=== PATIENT | female | born 1995 | race Caucasian/White ===

== ENCOUNTER 2021-08-10 16:49 | Outpatient (CLI) | payer OTHER, SELFPAY ==
[2021-08-10 18:21] LABS: SARS-CoV-2 RNA PCR Negative (Negative)
== END 2021-08-10 16:50 | disposition home or self-care (01) ==
LOC: CHSLAB 16:53
PROVIDERS: PCP Physician Assistant; Visit Provider Physician Assistant
DX: Z20.822 Contact with and (suspected) exposure to COVID-19 (principal)
CPT/HCPCS: C9803; U0003; U0005

== ENCOUNTER 2021-10-20 01:31 | Day surgery (SDC) | payer OTHER, SELFPAY ==
[2021-10-19 14:20] VITALS: BMI 39.9
--- NOTE | 2021-10-19 14:25 | PC.NURSE ---
Report to the Outpatient Waiting Room, entrance under the green pavilion located off [facility], at time _1100 on date __10/20/21 . OR Time: ____1330____. - You and your visitor will be asked a series of questions to screen for COVID 19 for your protection. - Only one visitor is allowed at this time. - The patient visitor is requested to leave or wait in car when not with patient. RAPID COVID 10/20/21 AT 1100 - A mask is required within the hospital. Patients may have clear liquids (water, carbonated beverages, clear teas, apple juice) until 3 hours prior to surgery with a maximum of 20 ounces. - No food from midnight until time of surgery - Infants may have breast milk until 4 hours before surgery, formula 6 hours prior to surgery. - Children will be allowed to drink immediately following surgery. If applicable, please bring a bottle or sippy cup to assist with drinking. Juice, water, soda, and popsicles are readily available. For infants on formula, please bring formula the day of surgery. Pacifiers are allowed. Take the following medications with a SIP of water the morning of surgery: ___NONE Medications to discontinue per physician _NONE Date to take last dose Please no make-up, nail libyan, hairspray, perfume, deodorant, or body powder the day of surgery. No jewelry (including any body piercings) or valuables the day of surgery, leave them at home. Please take a shower or bath the night before, or the morning of, surgery with an antibacterial soap. Wear comfortable, loose fitting clothing. Children are encouraged to wear pajamas. - Jewelry must be removed prior to entering the operating room. Rings and piercings that are not removed may be cut off. - The hospital will not accept responsibility for valuables. - Please leave all valuables, including medications, at home the day of surgery. If you are going home after surgery, a licensed escort car driver must drive you home. - NO public transportation without another adult. - We recommend that an adult stay with you for 24 hours following discharge. - We also recommend that you do not drive, make important decision, drink alcoholic beverages, or take any drugs that were not prescribed by your health care provider for at least 24 hours after your discharge time. For Pediatric surgeries, we recommend two adults accompany the child home (only one inside the building at this time). Follow any additional instructions given to you from your surgeon. If you or anyone in your household have experienced Covid symptoms in the past week, please notify your surgeon or the nurse liaison at the phone number below for possible testing. Telephone instructions given to ____PATIENT and asked if any additional questions and then verbalized understanding. Patient advised to call surgeon office or pre surgery nurse liaison [phone] if any additional questions.
[2021-10-20] VITALS (10 sets, daily range): BP systolic 112–145; BP diastolic 61–90; PULSE 51–81; RESP 11–20; TEMP 36.1–36.3; O2SAT 93–100
--- NOTE | 2021-10-20 07:23 | WPDHPUPDATE1 ---
History and Physical Update Update Date/Time: 10/20/21 07:23 History and Physical has been reviewed, including an updated exam of the patient. There are NO changes in the patient's condition. Risks, benefits, and alternatives have been discussed and questions answered. Patient agrees to proceed with procedure.
--- NOTE | 2021-10-20 07:24 | PM.IMHP ---
H&P: HPI History of Present Illness Date/Time: 10/20/21 07:24 [age] year 1 para admitted for laparoscopy secondary to pelvic pain 7 pains both sides more on the right and right left. Risks and benefits reviewed. All questions answered. She asked to proceed Chief Complaint: pelvic pain Review of Systems Review of Systems: All systems reviewed & are unremarkable except as noted in HPI and below PMFSH Social History Social History Smoking status: Never smoker Alcohol intake: current Drinks per week: 3 Living arrangements: with family Spiritual care concerns: No Meds Home Medications and Allergies Home Medications Medication Instructions Recorded Confirmed Type 1 tablet PO DAILY 10/19/21 10/19/21 History Allergies Allergy/AdvReac Type Severity Reaction Status Date / Time No Known Allergies Allergy Unverified 10/19/21 14:19 Exam Const: General: no acute distress Eyes: General: appearance normal, both eyes and all related structures Neck: Neck: supple and no JVD Thyroid: thyroid normal Resp: Effort & Inspection: normal respiratory effort Auscultation: clear to auscultation bilaterally Cardio: Rate: regular rate Rhythm: regular rhythm GI: Inspection: non-distended GI Palp: Yes Soft to palpation, No Tenderness to palpation present (GI) and No Guarding due to palpation present (GI) Auscultation: normal bowel sounds : External Female Exam: normal external appearance Speculum Exam - Vagina: normal appearance of the vagina Speculum Exam - Cervix: normal appearance of the cervix Bimanual Exam- Adnexa, other: tender Skin: General skin exam: no rashes or lesions noted Extrem: General: normal to inspection and no edema Psych: Mental Status: mental status grossly normal Affect: normal affect Assessment and Plan Additional Plan impression: Pelvic pain Plan: Laparoscopy
[2021-10-20] MEDS: ACETAMINOPHEN 500 MG TABLET 1000 MG PO (12:13)
[2021-10-20] MEDS: LACTATED RINGERS 1,000 ML 30 ML IV CONT ×2 (12:20→15:19)
[2021-10-20] MEDS: KETOROLAC 15 MG/ML VIAL (*BKC) IV PUSH (12:22)
--- NOTE | 2021-10-20 12:37 | WPDANESEPPF ---
Anes - Initial Pre Proc Eval Procedure: Operation Date: 10/20/21 13:30 Proposed Procedures p Diagnostic Laparoscopy - Jam Dominguez MD Date/Time: 10/20/21 12:37 Surgeon: Jam Dominguez MD Pre Op Diagnosis: Pain Patient Data Age: 26 Gender: F Height: 1.75 m Weight: 120.5 kg Last Vital Signs Temp 36.3 C L 10/20/21 11:58 Pulse 79 10/20/21 11:58 Resp 20 10/20/21 11:58 BP 123/84 10/20/21 11:58 Pulse Ox 100 10/20/21 11:58 Allergies Allergy/AdvReac Type Severity Reaction Status Date / Time No Known Allergies Allergy Unverified 10/20/21 12:10 Home Medications Medication Instructions Recorded Confirmed Type 1 tablet PO DAILY 10/19/21 10/20/21 History hydrocodone-acetaminophen 1 tablet PO Q4H PRN #30 tablet 10/20/21 Rx Patient hx anesthesia problems: none Family hx anesthesia problems: none Results Review: All pre-operative results and documents have been reviewed as part of the pre-operative evaluation. [facility] Social History Social History Smoking status: Never smoker Alcohol intake: current Drinks per week: 3 Spiritual care concerns: No Anes - Eval Final PreProcedure Day of Procedure 10/20/21 12:37 Patient weight: obese Heart: regular rate and rhythm Lungs: clear to auscultation and normal air movement Airway: Mallampati scale class II Neurological: alert and oriented Last oral intake: >/= 8 hours ASA classification: II Emergent: no Anesthetic plan: proceed Anesthesia type and monitoring: general ETT and standard monitoring Results Review: All pre-operative results and documents have been reviewed as part of the pre-operative evaluation. Informed Consent: The patient's anesthetic plan and its attendant risks and benefits were discussed with the patient/family/POA. Questions were solicited and answers provided to the satisfaction of the patient/family/POA.
--- NOTE | 2021-10-20 15:09 | W.PM.PROC2 ---
Procedure Note - Detailed Date of Procedure 10/20/21 Pre-op Diagnosis Pain Post-op Diagnosis Other (Right ovarian cyst. Lesion in the cul-de-sac) Procedure Performed Laparoscopy. Destruction right ovarian cyst. Biopsy of cul-de-sac lesion Surgeon Jam Dominguez MD Anesthesia General Indications This is a 26-year-old female with severe pelvic pain Findings Normal-appearing appendix liver edge. Normal-appearing left ovary and tube. Normal-appearing uterus. A reactive portion of tissue was seen in the left portion of the cul-de-sac which was biopsied and sent. A right ovarian cyst which was hemorrhagic in nature was seen as well. Description of Procedure Patient was prepped and draped in the normal sterile fashion placed in the dorsal lithotomy position. Under excellent general trach anesthesia weighted speculum placed in posterior fornix vagina. Anterior lip of the cervix grasped with single-tooth tenaculum. The Bruce's cannula inserted the cervix and attached to the single-tooth to be used later for uterine manipulation. After emptying the bladder clear urine the weighted speculum was removed and gloves were changed. A supraumbilical incision made the Veress needle passed in the abdomen. Abdomen filled with CO2 gas to 15mm Hg 5mm trocar advanced under direct visualization assuring injury. The patient placed in Trendelenburg a left lower quadrant incision made and a 5mm trocar advanced under direct visualization assuring injury. [id number] of serosanguineous fluid was seen in the cul-de-sac and this was suction and. The left ovary and tube appeared within normal limits on the left uterosacral ligament was a finger-like projection which was clamped and removed without difficulty. A right ovarian cyst was seen and this was opened in linear fashion draining of serosanguineous fluid. This was irrigated and no other abnormalities were seen the appendix and liver edge appeared within normal limits. No other abnormalities seen irrigation was taken until clear. At this point the lower site removed. The upper site removed the incisions closed with 4-0 robotic Krill glue. The instruments removed from the vagina and the patient was awakened. All sponge, needle, instrument counts were correct. There were no immediate complications Estimated Blood Loss 5 Drains No Packing No Pathology Yes Complications No immediate complications Condition Stable Disposition PACU
[2021-10-20] MEDS: fentaNYL CITRATE INJ (*CRX) 100 MCG/2 ML VIAL 25 MCG IV PUSH ×5 (15:36→16:21)
[2021-10-20] MEDS: oxyCODONE HCL (*CRX) 5 MG TAB IR PO (17:14)
[2021-10-20] MEDS: ONDANSETRON INJ 4 MG/2 ML VIAL IV PUSH (17:47)
[2021-10-20] MEDS: SCOPOLAMINE 1.5 MG PATCH TRANSDERM (17:47)
== END 2021-10-20 18:05 | disposition home or self-care (01) ==
PROVIDERS: PCP Physician Assistant; Visit Provider Obstetrics & Gynecology
PROC: (CPT 49320; principal; 2021-10-20 13:30)
DX: R10.2 Pelvic and perineal pain (principal); N83.201 Unspecified ovarian cyst, right side; N73.6 Female pelvic peritoneal adhesions (postinfective); E66.9 Obesity, unspecified; Z68.39 Body mass index [BMI] 39.0-39.9, adult
CPT/HCPCS: 58662; 49321; 36415; 86850; 86900; 86901; 87426; 88305; A9270; C9803; J0330; J1100; J1885; J2250; J2405; J2704; J3010; J7030; J7120

== ENCOUNTER 2021-10-20 10:56 | Outpatient (CLI) | payer OTHER, SELFPAY ==
[2021-10-20 11:32] LABS: EDCOVIDSCREEN Negative (Negative)
== END 2021-10-20 10:57 | disposition home or self-care (01) ==
LOC: ANHSURGERY 10:58
PROVIDERS: PCP Physician Assistant; Visit Provider Obstetrics & Gynecology
DX: Z01.812 Encounter for preprocedural laboratory examination (principal); Z20.822 Contact with and (suspected) exposure to COVID-19
CPT/HCPCS: 87426; C9803

== ENCOUNTER 2022-08-30 17:54 | Observation (INO) | payer OTHER, SELFPAY ==
[2022-08-30 18:15] VITALS: BMI 39.5
[2022-08-30 18:25] VITALS: BP 102/63; PULSE 81; RESP 18; TEMP 36.6
[2022-08-30 18:49] LABS: Appearance Urine Slightly Cloudy (Clear); Bilirubin Urine 1+ (Negative); Blood Urine Negative (Negative); Color Urine Yellow (Yellow); Glucose Urine UA Negative (Negative); Ketones Urine 1+ mg/dL (Negative); Leukocyte Esterase Ur Negative LEU/UL (Negative); Nitrate Urine Negative (Negative); Protein Urine Trace mg/dL (Negative); Specific Grav Ur >= 1.030 (1.001-1.035); pH Urine 5.5 (5.0-9.0)
[2022-08-30 19:00] LABS: Add Urine Microscopic? YES; RBC Urine 0-2 /hpf (0-2); Squamous Epithelial Cell Urine Moderate /hpf (Few); WBC Urine 0-5 /hpf (0-3)
--- NOTE | 2022-08-30 19:00 | OBADM ---
This patient, Haley Arce, admitted to the OB room OB Post 115 for observation. Patient/family oriented to hospital policies and general routines including ID bracelet, bed and alarms, visiting hours, pain management, procedures, bathroom and other care routines, personal items, smoking policy, room service/diet, and visiting hours. Patient/Family are encouraged to report perceived risks to care and to ask questions if they do not understand what they are told or what they should do.
[2022-08-30 19:01] LABS: Bacteria Urine Trace /hpf
--- NOTE | 2022-08-30 19:23 | PC.NURSE ---
Dr. Blanquita Dominguez notified of PT 19.2 weeks arrival to unit from ED with c/o abdominal cramping. PT states cramping started continuously yesterday and subsided overnight, started again this morning and has been intermittent all day. PT rates pain a 6 on a pain scale of 1-10. PT has not taken any medication recently for pain, denies leaking of fluid or bleeding. RN reported labs, vitals WNL, no uterine activity, abdomen soft to palpation, FHT via Doppler, 158bpm. Orders to educate PT on pain management, give PT 1g Tylenol, orders for discharge received.
--- NOTE | 2022-08-30 19:35 | PC.NURSE ---
Tamara Davison RN at bedside, Explained orders per Dr. Juares to PT. PT denies Tylenol at this time, PT states she will take medication when she goes home.
--- NOTE | 2022-08-30 19:52 | PC.NURSE ---
Tamara Davison RN at bedside discharge instructions given and reviewed with PT. PT verbalized understanding, PT given opportunity to ask questions with all questions answered. PT stable at this time. PT discharged from unit.
--- NOTE | 2022-08-31 11:06 | PM.OBTRLD ---
OB - Triage/Final Diagnosis Visit Information Date of evaluation: 08/30/22 Reason for evaluation: threatened labor Comments/Additional reasons for admission: I have assessed the risk for this patient, Haley Arce, and determined that she would benefit from observation care. Evaluation Laboratory results: Laboratory Tests 08/30/22 18:39 Urine Color Yellow Urine Appearance Slightly cloudy Urine pH 5.5 Ur Specific [place] >= 1.030 Urine Protein Trace Urine Glucose (UA) Negative Urine Ketones 1+ H Ur Blood (Man) Negative Urine Nitrate Negative Urine Bilirubin 1+ H Urine Urobilinogen 1.0 Leukocyte Esterase Rfl Negative Urine RBC 0-2 Urine WBC 0-5 Ur Squamous Epith Cells Moderate H Urine Bacteria Trace Vital signs: Vital Signs - 24 hr 08/30/22 18:25 08/30/22 18:15 Temperature 97.9 F Pulse Rate 81 Respiratory Rate 18 Blood Pressure 102/63 Oxygen Delivery Room Air
== END 2022-08-30 19:52 | disposition home or self-care (01) ==
PROVIDERS: Admitting Provider Obstetrics & Gynecology; PCP Physician Assistant; Visit Provider Obstetrics & Gynecology
DX: O47.02 False labor before 37 completed weeks of gestation, second trimester (principal); Z3A.19 19 weeks gestation of pregnancy
CPT/HCPCS: 81001; G0378; G0379

== ENCOUNTER 2022-11-01 14:40 | Observation (INO) | payer OTHER, SELFPAY ==
[2022-11-01 15:12] VITALS: BP 98/51; PULSE 85
[2022-11-01 15:15] VITALS: BP 102/54; PULSE 81
[2022-11-01 15:30] VITALS: BP 102/56; PULSE 84
[2022-11-01 15:47] LABS: Appearance Urine Cloudy (Clear); Bacteria Urine None Seen /hpf; Bilirubin Urine Negative (Negative); Blood Urine Negative (Negative); Color Urine Dark Yellow (Yellow); Glucose Urine UA Negative (Negative); Ketones Urine Trace mg/dL (Negative); Leukocyte Esterase Ur Negative LEU/UL (Negative); Mucus Urine Present /lpf; Need Manual Microscopic Reviewed; Nitrate Urine Negative (Negative); Non Pathogenic Casts 0-2; Protein Urine Trace mg/dL (Negative); RBC Urine 0-2 /hpf (0-2); Squamous Epithelial Cell Urine Few /hpf (Few)
[2022-11-01 16:01] LABS: Add Urine Microscopic? YES
[2022-11-01 16:05] VITALS: BMI 30.9
--- NOTE | 2022-11-02 13:13 | PM.OBTRLD ---
OB - Triage/Final Diagnosis Visit Information Reason for evaluation: threatened labor Comments/Additional reasons for admission: I have assessed the risk for this patient, Haley Arce, and determined that she would benefit from observation care. Evaluation Laboratory results: Laboratory Tests 11/01/22 15:05 Urine Color Dark yellow Urine Appearance Cloudy H Urine pH 6.0 Ur Specific [place] 1.040 H Urine Protein Trace Urine Glucose (UA) Negative Urine Ketones Trace H Ur Blood (Man) Negative Urine Nitrate Negative Urine Bilirubin Negative Urine Urobilinogen 1.0 Add Ur Microanalysis Reviewed Leukocyte Esterase Rfl Negative Urine RBC 0-2 Urine WBC 6-10 H Ur Squamous Epith Cells Few Urine Bacteria None seen Urine Casts 0-2 Urine Mucus Present Vital signs: Vital Signs - 24 hr 11/01/22 15:12 11/01/22 15:15 11/01/22 15:30 Pulse Rate 85 81 84 Blood Pressure 98/51 L 102/54 L 102/56 L
== END 2022-11-01 16:31 | disposition home or self-care (01) ==
PROVIDERS: Admitting Provider Obstetrics & Gynecology; PCP Physician Assistant; Visit Provider Obstetrics & Gynecology
DX: O47.1 False labor at or after 37 completed weeks of gestation (principal); O26.892 Other specified pregnancy related conditions, second trimester; R10.9 Unspecified abdominal pain; Z3A.28 28 weeks gestation of pregnancy
CPT/HCPCS: 81001; 87086; 87088; 87147; G0378; G0379

== ENCOUNTER 2023-01-02 16:48 | Observation (INO) | payer OTHER, SELFPAY ==
[2023-01-02 17:45] VITALS: BP 110/79; PULSE 84
--- NOTE | 2023-01-02 17:51 | PC.NURSE ---
Dr Flannery notified of back pain, no contractions noted, no CVA tenderness noted, SVE and reassuring fht's.
--- NOTE | 2023-01-02 18:01 | OBADM ---
This patient, Haley Arce, admitted to the OB room Labor/Delivery/Recovery 105 for observation. Patient/family oriented to hospital policies and general routines including ID bracelet, bed and alarms, visiting hours, pain management, procedures, bathroom and other care routines, personal items, smoking policy, room service/diet, and visiting hours. Patient/Family are encouraged to report perceived risks to care and to ask questions if they do not understand what they are told or what they should do.
[2023-01-02] MEDS: CYCLOBENZAPRINE HCL 10 MG TABLET PO (18:28)
--- NOTE | 2023-01-03 21:46 | PM.OBTRLD ---
OB - Triage/Final Diagnosis Visit Information Reason for evaluation: threatened labor Comments/Additional reasons for admission: I have assessed the risk for this patient, Haley Arce, and determined that she would benefit from observation care.
== END 2023-01-02 18:29 | disposition home or self-care (01) ==
PROVIDERS: Admitting Provider Obstetrics & Gynecology; PCP Physician Assistant; Visit Provider Obstetrics & Gynecology
DX: O47.1 False labor at or after 37 completed weeks of gestation (principal); Z3A.37 37 weeks gestation of pregnancy
CPT/HCPCS: A9270; G0378; G0379

== ENCOUNTER 2023-01-15 06:30 | Inpatient (IN) | payer OTHER, SELFPAY ==
[2023-01-15] VITALS (151 sets, daily range): BP systolic 38–153; BP diastolic 18–103; PULSE 51–138; RESP 18; TEMP 35.8–36.6; O2SAT 82–100; BMI 38.4
--- NOTE | 2023-01-15 06:30 | LDADM ---
This patient, Haley Arce, was admitted to Labor/Delivery/Recovery 103 on 01/15/23 at 06:30. Plans for labor, pain management and were discussed with patient. Patient/family oriented to hospital policies and general routines including ID bracelet, bed and alarms, visiting hours, pain management, procedures, bathroom and other care routines, personal items, smoking policy, room service/diet and guest tray routines, security routines, and visiting hours. Patient/Family are encouraged to report perceived risks to care and to ask questions if they do not understand what they are told or what they should do. See OBIX for further documentation.
--- NOTE | 2023-01-15 06:43 | P.HP_ITS ---
H&P: HPI History of Present Illness Date/Time: 01/15/23 06:43 Chief Complaint: Induction of labor at term Narrative: this is a 27-year-old 2 para 1 whose last menstrual period is unknown, EDC is 01/22/2023, confirmed by 9 week ultrasound who presents for induction of labor. Cervix is favorable. She is positive for group B strep and will be prophylaxed. [facility] Family History Family History Father ALS (amyotrophic lateral sclerosis) Hypertension Grandparent Malignant neoplasm of prostate Grandparent Leukemia Social History Social History Smoking status: Never smoker Alcohol intake: current Drinks per week: 3 Substance use: never Living arrangements: with family Spiritual care concerns: No Meds Home Medications and Allergies Home Medications Medication Instructions Recorded Confirmed Type 1 tablet PO DAILY 10/19/21 12/31/22 History Allergies Allergy/AdvReac Type Severity Reaction Status Date / Time No Known Allergies Allergy Verified 12/31/22 12:19 Exam Const: General: cooperative, healthy appearing and comfortable Nutritional Appearance: average body habitus Orientation/consciousness: oriented to person, oriented to place and oriented to time Resp: Effort & Inspection: normal respiratory effort Cardio: Rate: regular rate Rhythm: regular rhythm Heart sounds: S1 normal heart sound present and S2 normal heart sound present GI: Inspection: normal to inspection ( Gravid soft uterus) Assessment and Plan Assessment and plan (1) Term : Code(s): Z34.90 - Encounter for supervision of normal , unspecified, unspecified trimester Status: Acute (2) Positive testing for group B Streptococcus: Code(s): B95.1 - Streptococcus, group B, as the cause of diseases classified elsewhere Status: Acute Plan medical induction of labor. Spontaneous vaginal delivery is expected. Group B strep prophylaxis will be undertaken. She is an epidural candidate
[2023-01-15] MEDS: LACTATED RINGERS 1,000 ML 125 ML IV CONT ×3 (07:18→16:06)
[2023-01-15] MEDS: AMPICILLIN 2 GM/NS 100 ML 2 GM/100 ML BAG IVPB (07:19)
[2023-01-15 07:20] LABS: Basophils Percent Auto 0.2 % (0.2-1.2); Eosinophils Absolute Auto 0.1 K/mm3 (0-0.3); Eosinophils Percent Auto 0.6 % (0-4.4); Hematocrit 36.4 % (37.0-47.0); Hemoglobin 12.3 g/dL (12.0-15.0); Immature Granulocyte Absolute 0.04 K/mm3 (0.00-0.031); Immature Granulocyte Percent A 0.5 % (0-0.5); Lymphocytes Absolute Auto 1.79 K/mm3 (0.9-3.2); Lymphocytes Percent Auto 20.8 % (18.3-44.2); Mean Corpuscular HGB Conc 33.8 g/dl (32-36); Mean Corpuscular Volume 85.8 fl (80-100); Mean Platelet Volume 11.4 fl (7.4-10.4); Monocytes Absolute Auto 0.5 K/mm3 (0.1-0.6); Monocytes Percent Auto 5.2 % (2.6-8.5); Neutrophils Absolute Auto 6.3 K/mm3 (1.3-6.7); Neutrophils Percent Auto 72.7 % (45.5-73.1); Platelet Count Result 197 k/mm3 (150-375); Red Blood Count 4.24 M/mm3 (4.2-5.4); Red Cell Distribution Width 14.6 % (11.5-14.5); White Blood Count 8.6 K/mm3 (4.5-10.0)
--- NOTE | 2023-01-15 07:31 | WPDANESEPP ---
Anes - Eval Pre Procedure Procedure: labor epidural Date/Time: 01/15/23 07:31 Preop Diagnosis: labor pain Pre Op Diagnosis: IOL Patient Data Age: 27 Gender: F Height: 1.75 m Weight: 118 kg Last Vital Signs Pulse 77 01/15/23 07:30 BP 125/82 01/15/23 07:30 Allergies Allergy/AdvReac Type Severity Reaction Status Date / Time No Known Allergies Allergy Verified 12/31/22 12:19 Home Medications Medication Instructions Recorded Confirmed Type 1 tablet PO DAILY 10/19/21 12/31/22 History Laboratory Tests 01/15/23 06:51 WBC 8.6 K/mm3 (4.5-10.0) RBC 4.24 M/mm3 (4.2-5.4) Hgb 12.3 g/dL (12.0-15.0) Hct 36.4 L % (37.0-47.0) MCV 85.8 fl (80-100) MCH 29.0 pg (26-34) MCHC 33.8 g/dl (32-36) RDW 14.6 H % (11.5-14.5) Plt Count 197 k/mm3 (150-375) MPV 11.4 H fl (7.4-10.4) Immature Gran % (Auto) 0.5 % (0-0.5) Neut % (Auto) 72.7 % (45.5-73.1) Lymph % (Auto) 20.8 % (18.3-44.2) [place] % (Auto) 5.2 % (2.6-8.5) Eos % (Auto) 0.6 % (0-4.4) Baso % (Auto) 0.2 % (0.2-1.2) Lymph # (Auto) 1.79 K/mm3 (0.9-3.2) [place] # (Auto) 0.5 K/mm3 (0.1-0.6) Eos # (Auto) 0.1 K/mm3 (0-0.3) Baso # (Auto) 0.0 K/mm3 (0.0-0.1) Abs Immat Gran (auto) 0.04 H K/mm3 (0.00-0.031) Absolute Neuts (auto) 6.3 K/mm3 (1.3-6.7) Absolute Nucleated RBC 0.0 K/mm3 (0.0-0.012) Nucleated RBC % 0.0 % (0.0-0.2) RPR Pending Patient hx anesthesia problems: post op nausea/vomiting Family hx anesthesia problems: none Results Review: All pre-operative results and documents have been reviewed as part of the pre-operative evaluation. [facility] Family History Family History Father ALS (amyotrophic lateral sclerosis) Hypertension Grandparent Malignant neoplasm of prostate Grandparent Leukemia Social History Social History Smoking status: Never smoker Alcohol intake: current Drinks per week: 3 Substance use: never Living arrangements: with family Spiritual care concerns: No Exam Day of Procedure 01/15/23 07:31 Patient weight: normal Heart: regular rate and rhythm Lungs: clear to auscultation and normal air movement Airway: Mallampati scale Neurological: alert and oriented
[2023-01-15] MEDS: OXYTOCIN 30 UNITS/NS 500 ML 30 UNITS/500 ML BAG IV CONT (07:51)
[2023-01-15 08:32] LABS: Rapid Plasma Reagin Non-Reactive (NonReactive)
[2023-01-15] MEDS: AMPICILLIN 1 GM/NS 50 ML 1 GM/50 ML BAG IVPB ×2 (12:05→16:07)
--- NOTE | 2023-01-15 13:24 | PC.NURSE ---
[phone] Introductions were made and mother shared how she would like to feed her baby with along with her past experience. Mother would like to pump and feed at some point but not immediately. Questions answered and we discussed options. Encouraged mother to place [id number] until the first feeding if is stable and to wait on the weight to help stabilize, reduce stress, and improve latching by allowing time to explore parent's chest using instincts. Education was shared on how to protect her milk supply with latching and/or using hand expression to remove milk if doesn't latch in the first hour, then finger feed colostrum to the to preserve breast focus. Resources provided with educational trifold for bonding and feeding infant. Parents voiced understanding of information and to call if there is a request for assistance.
--- NOTE | 2023-01-15 16:28 | PM.OBPNLAB ---
Pain Control Date/time seen: 01/15/23 16:28 Pain control: tolerating well and epidural Pelvic Exam Dilation (cm): 8 Effacement (%): 80 station: -1 Amniotic membrane status: Leaking
[2023-01-15] MEDS: OXYTOCIN 30 UNITS/NS 500 ML 30 UNITS/500 ML BAG 125 UNITS IV CONT (17:32)
--- NOTE | 2023-01-15 19:02 | P.DS_ITS ---
DS: Admitting Diagnosis Discharge Date 01/17/2023 Admitting Diagnosis term DS: Discharge Diagnosis Discharge Diagnosis (1) Positive testing for group B Streptococcus: Code(s): B95.1 - Streptococcus, group B, as the cause of diseases classified elsewhere Status: Acute (2) Term : Code(s): Z34.90 - Encounter for supervision of normal , unspecified, unspecified trimester Status: Acute DS: Summary Hospital Course Reason for hospitalization: patient was admitted for induction labor at term Hospital Course: patient underwent spontaneous vaginal delivery on 01/15/2023. She received 3 doses of ampicillin prophylactically for group B strep. Hospital course unremarkable. She remained afebrile. She up, voiding without difficulty, ambulating, generally without complaints. Time Spent with Patient Time attestation: Total time spent providing and/or coordinating discharge services: Exam Const: General: cooperative, healthy appearing and comfortable Nutritional Appearance: average body habitus Orientation/consciousness: oriented to person, oriented to place and oriented to time HENMT: Head: normal to inspection Resp: Effort & Inspection: normal respiratory effort Cardio: Rate: regular rate Rhythm: regular rhythm Heart sounds: S1 no rmal heart sound present and S2 normal heart sound present GI: Inspection: normal to inspection ( Fundus firm below the umbilicus) DS: Data Data Completed and Pending Labs on day of discharge: Labs from last 24 hours 01/15/23 06:51 WBC 8.6 RBC 4.24 Hgb 12.3 Hct 36.4 L MCV 85.8 MCH 29.0 MCHC 33.8 RDW 14.6 H Plt Count 197 MPV 11.4 H Immature Gran % (Auto) 0.5 Neut % (Auto) 72.7 Lymph % (Auto) 20.8 [place] % (Auto) 5.2 Eos % (Auto) 0.6 Baso % (Auto) 0.2 Lymph # (Auto) 1.79 [place] # (Auto) 0.5 Eos # (Auto) 0.1 Baso # (Auto) 0.0 Abs Immat Gran (auto) 0.04 H Absolute Neuts (auto) 6.3 Absolute Nucleated RBC 0.0 Nucleated RBC % 0.0 RPR Non-reactive Blood Type O Negative Antibody Screen Negative Discharge Plan Discharge Attending physician on discharge: Jam Jacobs Discharging Clinician: aJm Jacobs Patient Disposition: Home, Self-Care Activity: may shower and pelvic rest Diet: heart healthy Wound Care Instructions: follow printed instructions Patient Instructions: Antibiotic Form Stand Alone Forms: General Discharge Information Follow-up/Referrals: Jam Jacobs MD [Physician] - Discharge Medications: Continued 1 tablet PO DAILY Date of admission: 01/15/23 06:30 Primary Care Provider: LoreeJam Admitting Provider: Jam Jacobs Attending physician on admission: Jam Jacobs Condition: Stable
--- NOTE | 2023-01-15 20:20 | PC.NURSE ---
Patient taken into bathroom via [employer]. Patient stated she was strong enough to move to toilet herself. Upon transferring from [employer] to toilet she fell to right knee. RN next to her side and attempted to save her from falling. Patient stated she was not injured and did not need anything.
[2023-01-16 01:30] VITALS: BP 110/70; PULSE 61; RESP 18; TEMP 36.3; O2SAT 100
[2023-01-16] MEDS: ACETAMINOPHEN 325 MG TABLET 650 MG PO ×2 (02:25→21:11)
[2023-01-16 05:00] VITALS: BP 110/63; PULSE 67; RESP 16; RESP 18; TEMP 36.6; O2SAT 100
[2023-01-16 05:32] LABS: Hematocrit 35.2 % (37.0-47.0); Hemoglobin 11.9 g/dL (12.0-15.0)
--- NOTE | 2023-01-16 07:43 | PM.OBPNVD ---
OB - PN: Subj Subjective Date/time seen: 01/16/23 07:43 Patient comments: no complaints and pain well controlled baby status: doing well OB - PN: Obj Data Labs 01/16/23 04:37 Labs: Laboratory Results - last 24 hr 01/15/23 01/16/23 06:51 04:37 Hgb 11.9 L Hct 35.2 L RPR Non-reactive Blood Type O Negative Antibody Screen Negative OB - PN A/P Plan day: 1 Plan: routine care Time Spent With Patient Time: Total time spent is greater than 50% in coordination of care (as documented) at patient's floor/unit and/or counseling patient: Time with patient: less than 15 minutes Exam Const: General: cooperative, healthy appearing and comfortable Nutritional Appearance: average body habitus Orientation/consciousness: oriented to person, oriented to place and oriented to time Resp: Effort & Inspection: normal respiratory effort Cardio: Rate: regular rate Rhythm: regular rhythm Heart sounds: S1 normal heart sound present and S2 normal heart sound present GI: Inspection: normal to inspection ( fundus firm below umbilicus)
--- NOTE | 2023-01-16 07:52 | WPDANLDPN2 ---
Anes-Prog Note L&D Date/Time: 01/16/23 07:52 Comfortable throughout: labor and delivery Neuraxial method: epidural Epidural/Spinal procedure site: clean & non-tender Neuro status: Neuro function grossly intact. Cardiovascular status: normal Respiratory status: normal Airway patency: baseline Mental status: baseline Post-Op hydration status: normal Vital Signs: Last Vital Signs Temp 97.8 F 01/16/23 05:00 Pulse 67 01/16/23 05:00 Resp 16 01/16/23 05:00 BP 110/63 01/16/23 05:00 Pulse Ox 100 01/16/23 05:00 O2 Del Method Room Air 01/16/23 05:00 Pain score (VAS): 0/10 I/O: Intake & Output 01/15/23 01/15/23 01/16/23 15:59 23:59 07:59 Intake Total 1050 1500 Balance 1050 1500 Post-procedural complaints: none Patient feedback: Patient satisfied with anesthetic care.
[2023-01-16 09:00] VITALS: BP 115/66; PULSE 63; RESP 18; TEMP 36.6; O2SAT 100
[2023-01-16] MEDS: IBUPROFEN 600 MG TABLET PO ×2 (09:00→21:12)
[2023-01-16] MEDS: MULTIVIT/MIN/PREN/FOL AC/IRON TABLET 1 TAB PO (09:00)
[2023-01-16] MEDS: WITCH HAZEL 40 PADS 1 PAD TOPICAL (09:01)
[2023-01-16] MEDS: BENZOCAINE 20% AER SPR (*SP) 56 GM CAN 1 SPRAY TOPICAL (09:02)
--- NOTE | 2023-01-16 11:30 | PC.NURSE ---
[id number] Re-introductions were made and mother states is going well when her infant will latch, however, this morning infant was sleepy and reluctant. Mother pumped and the RN syringe fed infant the 1.5mls collected. Mother works well with her infant with encouragement. Reviewed skin to skin, responding to feeding cues, frequencies of feeding 8-12 times in 24 hours (approximately 2-3 hours), duration of feedings, milk production, intake/output feeding sheet and signs of adequate intake encouraging swallowing at the breast. Mother realized it had been 3 hours and was eager to work with her infant [id number] to stimulate wakefulness to effectively breastfeed. RN undressed and placed upright [id number] with mother. Mother states the left breast is getting tender related to latching and doesn't latch to the right breast, therefore mother pumped the right breast earlier. Reviewed with mother that it can take some burping and stimulation to get her showing feeding cues. We reviewed what an effective vs ineffective latch feels like. Resources used to facilitate learning were used from the mom and baby guide. Mother voiced understanding of the education shared, to call for assistance if the does not latch or if there is discomfort with . Reported to the primary RN.
[2023-01-16 12:10] VITALS: BP 116/74; PULSE 59; RESP 16; TEMP 36.8; O2SAT 99
--- NOTE | 2023-01-16 12:42 | P.PCNOB_ITS ---
OB - Delivery Note Procedure Delivery date: 01/15/23 Procedure: mil Events: Positive Group B Strep (GBS) Induction method: AROM Delivery augmentation: Pitocin Delivery monitor: External FHT Route of delivery: Episiotomy description: None Laceration Description: Perineal - 1st Degree Delivery repair: vicryl Specimen: No Quantitative Blood Loss (ml): 60 Anesthesia type: Epidural Disposition: Floor [place] Baby Date of : 01/15/23 Time of : 16:57 Weeks of gestation at delivery: 39 gender: Male Weight (pounds): 7 Weight (ounces): 12 presentation: vertex position: Right Occiput Anterior Placenta delivery description: Spontaneous Cord Vessel Description: 3 Vessels, True Knot and Loose score one minute: 8 score five minutes: 9 Narrative: Ampicillin x3 for group B strep
[2023-01-16 22:20] VITALS: BP 126/78; PULSE 57; RESP 16; RESP 18; TEMP 36.8; O2SAT 99
[2023-01-17] MEDS: ACETAMINOPHEN 325 MG TABLET 650 MG PO (04:16)
[2023-01-17] MEDS: IBUPROFEN 600 MG TABLET PO (04:16)
--- NOTE | 2023-01-17 06:33 | P.PNOB_ITS ---
OB - PN: Subj Subjective Date/time seen: 01/17/23 06:33 Patient comments: no complaints and pain well controlled baby status: doing well OB - PN: Obj Data Labs 01/16/23 04:37 OB - PN A/P Plan day: 2 Plan: routine care, discharge home and follow up 6 weeks Time Spent With Patient Time: Total time spent is greater than 50% in coordination of care (as documented) at patient's floor/unit and/or counseling patient: Time with patient: less than 15 minutes Exam Const: General: cooperative, healthy appearing and comfortable Orientat ion/consciousness: oriented to person, oriented to place and oriented to time HENMT: Head: normal to inspection Resp: Effort & Inspection: normal respiratory effort Cardio: Rate: regular rate Rhythm: regular rhythm Heart sounds: S1 normal heart sound present and S2 normal heart sound present GI: Inspection: normal to inspection ( fundus firm below the umbilicus)
[2023-01-17 08:45] VITALS: BP 104/71; PULSE 57; RESP 16; TEMP 36.3; O2SAT 100
[2023-01-18 09:45] VITALS: BP 116/74; PULSE 66; RESP 18; TEMP 37.1; O2SAT 99
== END 2023-01-17 10:37 | disposition home or self-care (01) | DRG 807 ==
LOC: ANHLDR 19:04 → ANHOB2 21:26
PROVIDERS: Admitting Provider Obstetrics & Gynecology; PCP Physician Assistant; Visit Provider Obstetrics & Gynecology
DX: O99.824 Streptococcus B carrier state complicating childbirth (principal); Z37.0 Single live birth; Z3A.39 39 weeks gestation of pregnancy; O32.6XX0 Maternal care for compound presentation, not applicable or unspecified; O70.0 First degree perineal laceration during delivery; O69.1XX0 Labor and delivery complicated by cord around neck, with compression, not applicable or unspecified
CPT/HCPCS: 36415; 85014; 85018; 85025; 86592; 86850; 86900; 86901; A9270; J0290; J2590; J2795; J7120

== ENCOUNTER 2023-01-22 01:18 | Day surgery (SDC) | payer OTHER, SELFPAY ==
[2023-01-21 11:47] VITALS: BMI 36.9
--- NOTE | 2023-01-21 11:51 | PC.NURSE ---
Report to the Outpatient Waiting Room, entrance under the green pavilion located off [facility], at time 0600 on date 01/22/23. Planned Procedure Time: 0730. Time changes happen often and if your time is changed the preop area will call you the afternoon before. - You and your visitor will be asked to self-screen and do not enter if you have any COVID symptoms. - A mask is optional within the hospital at this time. Patients may have clear liquids (water, carbonated beverages, clear teas, apple juice) until 3 hours prior to surgery with a maximum of 20 ounces. - No food from midnight until time of surgery Take the following medications with a SIP of water the morning of surgery: NONE DO NOT STOP ANY OF YOUR OTHER PRESCRIPTION MEDICATIONS PRIOR TO SURGERY ?EXCEPT THE FOLLOWING Medications to discontinue per physician: N/A Date to take last dose: N/A Please no make-up, nail ukrainian, hairspray, perfume, deodorant, or body powder the day of surgery. No jewelry (including any body piercings) or valuables the day of surgery, leave them at home. Please take a shower or bath the night before, or the morning of, surgery with an antibacterial soap. Wear comfortable, loose fitting clothing. - Jewelry must be removed prior to entering the operating room. Rings and piercings that are not removed may be cut off. - The hospital will not accept responsibility for valuables. - Please leave all valuables, including medications, at home the day of surgery. If you are going home after surgery, a licensed rental car ferry driver must drive you home. - NO public transportation without another adult if you receive anesthesia. - We recommend that an adult stay with you for 24 hours following discharge. - We also recommend that you do not drive, make important decision, drink alcoholic beverages, or take any drugs that were not prescribed by your health care provider for at least 24 hours after your discharge time. Follow any additional instructions given to you from your surgeon. If you or anyone in your household have experienced Covid symptoms in the past week, please notify your surgeon or the nurse liaison at the phone number below for possible testing. Telephone instructions given to PT - JOSE AYALA and asked if any additional questions and then verbalized understanding. Patient advised to call surgeon office or pre surgery nurse liaison [phone] if any additional questions.
--- NOTE | 2023-01-21 12:55 | PM.IMHP ---
H&P: HPI History of Present Illness Date/Time: 01/21/23 12:55 Chief Complaint: bleeding Narrative: such 27-year-old female who delivered on 01/15/2023. She had some heavier bleeding and ultrasound in the office showed retained placenta she will undergo suction dilatation curettage. Risks and benefits reviewed in full [facility] Family History Family History Father ALS (amyotrophic lateral sclerosis) Hypertension Grandparent Malignant neoplasm of prostate Grandparent Leukemia Social History Social History Smoking status: Never smoker Alcohol intake: current Drinks per week: 3 Alcohol use details: WHEN NOT Substance use: never Substance use type: does not use Lack of Transportation: No Lack of Food: Never True Current Housing: I Have Housing Concerned About Future Housing: No Difficulty Paying Gas/Electric Bills: No Difficulty Paying for Meds: No Currently Unemployed: No Education: High School Diploma/GED Difficulty w/ Childcare or Family Care: No Living arrangements: with family Spiritual care concerns: No Meds Home Medications and Allergies Home Medications Medication Instructions Recorded Confirmed Type 1 tablet PO DAILY 10/19/21 01/21/23 History Allergies Allergy/AdvReac Type Severity Reaction Status Date / Time No Known Allergies Allergy Verified 01/21/23 11:46 Exam Const: General: cooperative, healthy appearing, comfortable and overweight Orientation/consciousness: oriented to person, oriented to place and oriented to time HENMT: Head: normal to inspection Resp: Effort & Inspection: normal respiratory effort Cardio: Rate: regular rate Rhythm: regular rhythm Heart sounds: S1 normal heart sound present and S2 normal heart sound present GI: Inspection: normal to inspection ( fundus firm below umbilicus) Auscultation: normal bowel sounds : Speculum Exam - Vagina: normal appearance of the vagina and vaginal bleeding Speculum Exam - Cervix: normal appearance of the cervix Bimanual exam- vagina & uterus: enlarged Bimanual Exam- Adnexa, other: normal adnexae Assessment and Plan Assessment and plan (1) bleeding: Code(s): O72.1 - Other immediate hemorrhage Status: Acute Plan suction dilatation curettage
[2023-01-22 06:28] VITALS: BP 126/85; PULSE 76; RESP 16; TEMP 36.5; O2SAT 98
[2023-01-22] MEDS: LACTATED RINGERS 1,000 ML 30 ML IV CONT (06:39)
[2023-01-22] MEDS: ACETAMINOPHEN 500 MG TABLET 1000 MG PO (06:40)
--- NOTE | 2023-01-22 06:56 | WPDHPUPDATE1 ---
History and Physical Update Update Date/Time: 01/22/23 06:56 History and Physical has been reviewed, including an updated exam of the patient. There are NO changes in the patient's condition. Risks, benefits, and alternatives have been discussed and questions answered. Patient agrees to proceed with procedure.
--- NOTE | 2023-01-22 07:08 | P.PNAN_ITS ---
Anes - Initial Pre Proc Eval Procedure: Operation Date: 01/22/23 07:30 Proposed Procedures p Suction Dilation and Curettage - Jam Dominguez MD Date/Time: 01/22/23 07:08 Surgeon: Jam Dominguez MD Pre Op Diagnosis: retained products and bleeding Patient Data Age: 27 Gender: F Height: 1.75 m Weight: 113.3 kg Last Vital Signs Temp 36.5 C 01/22/23 06:28 Pulse 76 01/22/23 06:28 Resp 16 01/22/23 06:28 BP 126/85 01/22/23 06:28 Pulse Ox 98 01/22/23 06:28 O2 Del Method Room Air 01/22/23 06:28 Allergies Allergy/AdvReac Type Severity Reaction Status Date / Time No Known Allergies Allergy Verified 01/22/23 06:33 Home Medications Medication Instructions Recorded Confirmed Type 1 tablet PO DAILY 10/19/21 01/22/23 History hydrocodone 5 mg-acetaminophen 325 1 tablet PO Q4H PRN pain #14 tabs 01/22/23 Rx mg tablet Patient hx anesthesia problems: none Family hx anesthesia problems: none Results Review: All pre-operative results and documents have been reviewed as part of the pre- operative evaluation. [facility] Family History Family History Father ALS (amyotrophic lateral sclerosis) Hypertension Grandparent Malignant neoplasm of prostate Grandparent Leukemia Social History Social History Smoking status: Never smoker Alcohol intake: current Drinks per week: 3 Alcohol use details: WHEN NOT Substance use: never Substance use type: does not use Lack of Transportation: No Lack of Food: Never True Current Housing: I Have Housing Concerned About Future Housing: No Difficulty Paying Gas/Electric Bills: No Difficulty Paying for Meds: No Currently Unemployed: No Education: High School Diploma/GED Difficulty w/ Childcare or Family Care: No Living arrangements: with family Spiritual care concerns: No Anes - Eval Final PreProcedure Day of Procedure 01/22/23 07:08 Patient weight: obese Heart: regular rate and rhythm Lungs: clear to auscultation Airway: Mallampati scale class II Neurological: alert and oriented Last oral intake: >/= 8 hours ASA classification: II Emergent: no Anesthetic plan: proceed Anesthesia type and monitoring: general GIVS and standard monitoring Results Review: All pre-operative results and documents have been reviewed as part of the pre- operative evaluation. Informed Consent: The patient's anesthetic plan and its attendant risks and benefits were discussed with the patient/family/POA. Questions were solicited and answers provided to the satisfaction of the patient/family/POA.
--- NOTE | 2023-01-22 07:48 | P.OP_ITS ---
Procedure Note - Detailed Date of Procedure 01/22/23 Pre-op Diagnosis retained products and bleeding Post-op Diagnosis Same Procedure Performed suction dilatation curettage Surgeon Jam Dominguez MD Anesthesia MAC and Local Indications this is a 27-year-old female less than a week out from her delivery with retained placenta Findings uterus sounded to 11cm. Tissue was consistent with products of conception Description of Procedure patient was prepped draped in normal sterile fashion placed in dorsal sedation weighted speculum placed in posterior fornix. Anterior lip of the cervix graspe d with single-tooth tenaculum. 2.5cc 1% xylocaine anesthesia placed at 2, 4, 8, 10:00 a.m. of the cervix. Uterus sounded to 11cm. Serial dilatation with fragmented dilators performed followed by passes the 10. Suction curette. A moderate to large amount of tissue was removed. When a good grating sound was heard the instruments withdrawn. Blood loss estimated at50cc. Patient went to recovery in satisfactory condition. All sponge, needle, instrument counts were correct. Estimated Blood Loss 50 Drains No Packing No Pathology Yes Complications No immediate complications Condition Stable Disposition PACU
[2023-01-22 07:55] VITALS: BP 110/75; PULSE 74; RESP 14; O2SAT 95
[2023-01-22] MEDS: KETOROLAC 15 MG/ML VIAL (*BKC) IV PUSH (07:59)
[2023-01-22 08:25] VITALS: BP 126/79; PULSE 56; RESP 14
[2023-01-22 08:50] VITALS: BP 137/75; PULSE 54; RESP 14
== END 2023-01-22 09:05 | disposition home or self-care (01) ==
PROVIDERS: PCP Physician Assistant; Visit Provider Obstetrics & Gynecology
PROC: (CPT 59160; principal; 2023-01-22 07:30)
DX: O72.2 Delayed and secondary postpartum hemorrhage (principal)
CPT/HCPCS: 59160; 88305; A9270; J1885; J2704; J3010; J7120

== ENCOUNTER 2023-09-06 00:30 | Day surgery (SDC) | payer OTHER, SELFPAY ==
[2023-09-03 12:14] VITALS: BMI 41.3
--- NOTE | 2023-09-03 12:18 | PC.NURSE ---
Report to the Outpatient Waiting Room, entrance under the green pavilion located off [facility], at time 1:00 on date 09/06/23. Planned Procedure Time: 3:00. Time changes happen often and if your time is changed the preop area will call you the afternoon before. - You and your visitor will be asked to self-screen and do not enter if you have any COVID symptoms. - A mask is optional within the hospital at this time. Patients may have clear liquids (water, carbonated beverages, clear teas, apple juice) until 3 hours prior to surgery (12:00) with a maximum of 20 ounces. - No food from midnight until time of surgery Take the following medications with a SIP of water the morning of surgery: N/A DO NOT STOP ANY OF YOUR OTHER PRESCRIPTION MEDICATIONS PRIOR TO SURGERY ?EXCEPT THE FOLLOWING Medications to discontinue per physician: N/A Date to take last dose: N/A Please no make-up, nail sl[place], hairspray, perfume, deodorant, or body powder the day of surgery. No jewelry (including any body piercings) or valuables the day of surgery, leave them at home. Please take a shower or bath the night before, or the morning of, surgery with an antibacterial soap. Wear comfortable, loose fitting clothing. - Jewelry must be removed prior to entering the operating room. Rings and piercings that are not removed may be cut off. - The hospital will not accept responsibility for valuables. - Please leave all valuables, including medications, at home the day of surgery. If you are going home after surgery, a licensed dedicated driver must drive you home. - NO public transportation without another adult if you receive anesthesia. - We recommend that an adult stay with you for 24 hours following discharge. - We also recommend that you do not drive, make important decision, drink alcoholic beverages, or take any drugs that were not prescribed by your health care provider for at least 24 hours after your discharge time. Follow any additional instructions given to you from your surgeon. If you or anyone in your household have experienced Covid symptoms in the past week, please notify your surgeon or the nurse liaison at the phone number below for possible testing. Telephone instructions given to RAUL GARCIA and asked if any additional questions and then verbalized understanding. Patient advised to call surgeon office or pre surgery nurse liaison [phone] if any additional questions.
--- NOTE | 2023-09-04 07:10 | P.HP_ITS ---
H&P: HPI History of Present Illness Date/Time: 09/04/23 07:10 Chief Complaint: right-sided pelvic pain Narrative: 48 female for laparoscopy right cystectomy and possible right oophorectomy secondary to pelvic pain. Imaging showed a small cyst. She has had chronic and severe right-sided pelvic pain she will undergo diagnostic laparoscopy. Risks and benefits reviewed exclusive , aspiration bleeding, transfusion, perforation of bowel bladder, ureters, or other internal organs with need for laparotomy. She received the [employer] handout entitled laparoscopy. She had all questions answered. She asked to proceed [facility] Family History Family History Father ALS (amyotrophic lateral sclerosis) Hypertension Grandparent Malignant neoplasm of prostate Grandparent Leukemia Social History Social History Smoking status: Never smoker Alcohol intake: current Drinks per week: 4 Alcohol use details: WHEN NOT Substance use: never Substance use type: does not use Lack of Transportation: No Lack of Food: Never True Current Housing: I Have Housing Concerned About Future Housing: No Difficulty Paying Gas/Electric Bills: No Difficulty Paying for Meds: No Currently Unemployed: No Education: High School Diploma/GED Difficulty w/ Childcare or Family Care: No Living arrangements: with family Spiritual care concerns: No Meds Home Medications and Allergies Home Medications Medication Instructions Recorded Confirmed Type No Home Medications 09/03/23 09/03/23 History Allergies Allergy/AdvReac Type Severity Reaction Status Date / Time No Known Allergies Allergy Verified 09/03/23 12:14 Exam Const: General: cooperative, healthy appearing and comfortable Nutritional Appearance: average body habitus Orientation/consciousness: oriented to person, oriented to place and oriented to time HENMT: Head: normal to inspection Resp: Effort & Inspection: normal respiratory effort Cardio: Rate: regular rate Rhythm: regular rhythm Heart sounds: S1 normal heart sound present and S2 normal heart sound present GI: Inspection: normal to inspection : External Female Exam: normal external appearance Speculum Exam - Vagina: normal appearance of the vagina Speculum Exam - Cervix: normal appearance of the cervix Bimanual exam- vagina & uterus: soft Bimanual Exam- Adnexa, other: tender on the right Assessment and Plan Assessment and plan (1) Pelvic pain: Code(s): R10.2 - Pelvic and perineal pain Status: Acute (2) Right ovarian cyst: Code(s): N83.201 - Unspecified ovarian cyst, right side Status: Acute Plan laparoscopy with right cystectomy and a likely right oophorectomy
--- NOTE | 2023-09-05 14:52 | WPDANESEPPF ---
Anes - Initial Pre Proc Eval Procedure: Operation Date: 09/06/23 15:00 Proposed Procedures p Laparoscopic Right Ovarian Cystectomy - Jam Dominguez MD Date/Time: 09/05/23 14:52 Surgeon: Jam Dominguez MD Pre Op Diagnosis: Pelvic Pain, Right Ovarian Cyst Patient Data Age: 28 Gender: F Height: 1.75 m Weight: 127 kg Allergies Allergy/AdvReac Type Severity Reaction Status Date / Time No Known Allergies Allergy Verified 09/03/23 12:14 Home Medications Medication Instructions Recorded Confirmed Type hydrocodone 5 mg-acetaminophen 325 1 tablet PO Q4H PRN pain #30 tabs 09/06/23 Rx mg tablet Patient hx anesthesia problems: post op nausea/vomiting Family hx anesthesia problems: none Results Review: All pre-operative results and documents have been reviewed as part of the pre-operative evaluation. [facility] Past Medical History Medical History (Updated 09/05/23 @ 14:52 by Napoleon Reagan DO) Anxiety Depression PONV (postoperative nausea and vomiting) Family History Family History Father ALS (amyotrophic lateral sclerosis) Hypertension Grandparent Malignant neoplasm of prostate Grandparent Leukemia Social History Social History Smoking status: Never smoker Alcohol intake: current Drinks per week: 4 Alcohol use details: WHEN NOT Substance use: never Substance use type: does not use Lack of Transportation: No Lack of Food: Never True Current Housing: I Have Housing Concerned About Future Housing: No Difficulty Paying Gas/Electric Bills: No Difficulty Paying for Meds: No Currently Unemployed: No Education: High School Diploma/GED Difficulty w/ Childcare or Family Care: No Living arrangements: with family Spiritual care concerns: No Anes - Eval Final PreProcedure Day of Procedure 09/05/23 14:52 Patient weight: morbidly obese Heart: regular rate and rhythm Lungs: clear to auscultation Airway: Mallampati scale class III Neurological: alert and oriented Last oral intake: >/= 8 hours ASA classification: III Emergent: no Anesthetic plan: proceed Anesthesia type and monitoring: general ETT and standard monitoring Results Review: All pre-operative results and documents have been reviewed as part of the pre-operative evaluation. Informed Consent: The patient's anesthetic plan and its attendant risks and benefits were discussed with the patient/family/POA. Questions were solicited and answers provided to the satisfaction of the patient/family/POA.
[2023-09-06] VITALS (9 sets, daily range): BP systolic 113–132; BP diastolic 69–83; PULSE 65–90; RESP 12–22; TEMP 36.2–36.8; O2SAT 93–100; BMI 40.9
--- NOTE | 2023-09-06 06:37 | WPDHPUPDATE1 ---
History and Physical Update Update Date/Time: 09/06/23 06:37 History and Physical has been reviewed, including an updated exam of the patient. There are NO changes in the patient's condition. Risks, benefits, and alternatives have been discussed and questions answered. Patient agrees to proceed with procedure.
[2023-09-06] MEDS: LACTATED RINGERS 1,000 ML 30 ML IV CONT (13:45)
[2023-09-06] MEDS: ACETAMINOPHEN 500 MG TABLET 1000 MG PO (13:53)
[2023-09-06] MEDS: KETOROLAC 15 MG/ML VIAL (*BKC) IV PUSH (13:53)
[2023-09-06] MEDS: SCOPOLAMINE 1 MG PATCH 1 PATCH TRANSDERM (13:57)
--- NOTE | 2023-09-06 14:44 | W.PM.PROC2 ---
Procedure Note - Detailed Date of Procedure 09/06/23 Pre-op Diagnosis Pelvic Pain, Right Ovarian Cyst Post-op Diagnosis Same Procedure Performed T laparoscopic right oophorectomy Surgeon Jam Dominguez MD Anesthesia General Indications this is a 28-year-old female with complex right ovarian cyst Findings complex right ovarian cyst otherwise normal-appearing pelvis Description of Procedure patient was draped sterile fashion placed in dorsal position. Under general trach anesthesia weighted speculum placed in posterior fornix vagina. Anterior lip of the cervix grasped with single-tooth tenaculum. Bruce's cannula inserted the cervix and attached to the single-tooth. Bladder was then emptied clear urine in the weighted speculum was removed. A supraumbilical incision made the Veress needle passed in the abdomen. Filled with CO2 gas [id number]. 5Mm trocar advanced in the abdomen. Downside visualized no injury seen. Patient placed in Trendelenburg a suprapubic incision made. The 5mm trocar advanced under direct visualization assuring no injury. Complex right ovarian cyst was seen. A right lower quadrant incision made the 8mm trocar advanced under direct visualization. The infundibulopelvic structure was skeletonized on the right ovary clamped, burned, cut. The ovary was then placed in an Endo-Catch removed through the right lower quadrant irrigation undertaken to clear and hemostasis was assured lower sites removed. Incisions closed with 4 Monocryl glue after the incisions had the trocars removed and the gas was removed from the abdomen the patient went to recovery in satisfactory condition. All sponge, needle, instrument counts were correct. There were no immediate complications Estimated Blood Loss 5 Drains No Packing No Pathology Yes Complications No immediate complications Condition Stable Disposition PACU
[2023-09-06] MEDS: fentaNYL CITRATE INJ (*CRX) 100 MCG/2 ML VIAL 25 MCG IV PUSH ×3 (14:58→15:12)
[2023-09-06] MEDS: ONDANSETRON INJ 4 MG/2 ML VIAL IV PUSH (15:00)
[2023-09-06] MEDS: oxyCODONE HCL (*CRX) 5 MG TAB IR PO (16:03)
== END 2023-09-06 16:48 | disposition home or self-care (01) ==
PROVIDERS: PCP Physician Assistant; Visit Provider Obstetrics & Gynecology
PROC: (CPT 49320; principal; 2023-09-06 15:00)
DX: N83.11 Corpus luteum cyst of right ovary (principal); E66.01 Morbid (severe) obesity due to excess calories; Z68.41 Body mass index [BMI] 40.0-44.9, adult
CPT/HCPCS: 58661; 36415; 86850; 86900; 86901; 88305; A9270; J1100; J1885; J2250; J2405; J2704; J3010; J7030; J7120; Q9968

== ENCOUNTER 2023-10-28 11:04 | Emergency (ER) | payer OTHER, SELFPAY ==
--- NOTE | ~2023-10-28 | CT_ITS ---
EXAMINATION: CT abdomen pelvis w con DATE: 10/28/2023 14:56 INDICATION: Right flank pain. Right upper quadrant abdominal pain. TECHNIQUE: Computed tomography (CT) of the abdomen and pelvis was performed with 100 mL Omnipaque 350 intravenous contrast. Automated exposure control and iterative reconstruction technique were employe d. The dose-length product was 1634.16 mGy-cm. COMPARISON: None. FINDINGS: The visualized portions of the lung bases demonstrate minimal atelectasis on the right. No pleural effusion. The heart size is normal. No pericardial effusion. The liver, gallbladder, spleen, pancreas, adrenal glands, and kidneys are normal. There are no dilated loops of bowel. The appendix i s normal. There are no pathologically enlarged lymph nodes. There is no free intraperitoneal fluid. T here is mild thoracic and lumbar spondylosis. There is mild chronic anterior wedging of multiple thor acic vertebral bodies. IMPRESSION: 1. No etiology for the patient's symptoms. Reviewed, dictated and finalized at location A.
[2023-10-28 11:22] VITALS: BP 139/84; PULSE 65; RESP 14; TEMP 36.2; O2SAT 100
[2023-10-28 13:07] LABS: Appearance Urine Cloudy (Clear); Bacteria Urine 1+ /hpf; Bilirubin Urine Negative (Negative); Blood Urine Negative (Negative); Color Urine Yellow (Yellow); Glucose Urine UA Negative (Negative); Ketones Urine Negative (Negative); Leukocyte Esterase Ur 1+ LEU/UL (Negative); Nitrate Urine Negative (Negative); Non Pathogenic Casts 0-2; Protein Urine Negative (Negative); RBC Urine 0-2 /hpf (0-2); Specific Grav Ur 1.027 (1.001-1.035); Squamous Epithelial Cell Urine Moderate /hpf (Few); Urobilinogen Urine 0.2 mg/dL (<2.0); pH Urine 5.5 (5.0-9.0)
[2023-10-28 13:08] LABS: Add Urine Microscopic? YES
--- NOTE | 2023-10-28 13:12 | ED.BACK ---
HPI - Back Pain/Injury General Chief Complaint: Back Pain/Injury Stated Complaint: back pain, flank pain Time Seen by Provider: 10/28/23 12:47 History of Present Illness HPI Narrative: 28-year-old female presenting to the emergency department for evaluation of right flank pain that radiates down to her right lower quadrant. Patient states symptoms started yesterday and have worsened. Patient denies any a specific pain with urination. Patient has no prior history of kidney stones. Patient denies any prior history of gallbladder disease. Related Data Allergies Allergy/AdvReac Type Severity Reaction Status Date / Time No Known Allergies Allergy Verified 09/06/23 14:09 Review of Systems Review of Systems: All systems reviewed & are unremarkable except as noted in HPI and below PMFSH Past Medical History Medical History (Updated 10/29/23 @ 00:00 by Julio Rios) Anxiety Depression PONV (postoperative nausea and vomiting) Family History Family History Father ALS (amyotrophic lateral sclerosis) Hypertension Grandparent Malignant neoplasm of prostate Grandparent Leukemia Social History Social History Smoking status: Never smoker Alcohol intake: current Drinks per week: 4 Alcohol use details: WHEN NOT Substance use: never Substance use type: does not use Lack of Transportation: No Lack of Food: Never True Current Housing: I Have Housing Concerned About Future Housing: No Difficulty Paying Gas/Electric Bills: No Difficulty Paying for Meds: No Currently Unemployed: No Education: High School Diploma/GED Difficulty w/ Childcare or Family Care: No Living arrangements: with family Spiritual care concerns: No Exam Narrative: APPEARANCE: Well appearing, no pain, no distress, well-nourished. HEAD: normocephalic, atraumatic. EYES: PERRLA/EOMI, conjunctivae clear. NOSE: Normal no drainage EARS:TMS clear with good light reflex. THROAT: Pharynx clear, no exudate. NECK: Supple. No adenopathy, no masses. RESPIRATORY: Airway patent, respirations nonlabored. Clear to auscultation bilaterally, no rales, rhonchi, wheezing. CARDIOVASCULAR: Regular rate and rhythm without murmurs rubs or gallops. ABDOMINAL: Right CVA tenderness to palpation MUSCULOSKELETAL: Moves all extremities. Strength/ROM intact, No edema, No calf tenderness. NEURO: Alert. Cranial nerves II through XII intact. Good gait. Good coordination SKIN: Warm, dry. Normal Color Course Course Emergency Course: Patient was updated results and patient was encouraged close follow-up with her primary care physician. Patient was started on antibiotics for urinary tract infection. Vital Signs Vital signs: Vital Signs Temperature 97.2 F L 10/28/23 11:22 Pulse Rate 65 10/28/23 11:22 Respiratory Rate 14 10/28/23 11:22 Blood Pressure 139/84 10/28/23 11:22 Pulse Oximetry 100 10/28/23 11:22 Oxygen Delivery Room Air 10/28/23 11:22 Temperature 97.2 F L 10/28/23 11:22 Pulse Rate 65 10/28/23 11:22 Respiratory Rate 14 10/28/23 11:22 Blood Pressure 139/84 10/28/23 11:22 Pulse Oximetry 100 10/28/23 11:22 Oxygen Delivery Room Air 10/28/23 11:22 MDM - Back Pain/Injury MDM Narrative Medical decision making narrative: 28-year-old female present to the emergency department for evaluation of right flank pain with right upper quadrant tenderness. Patient had no suprapubic tenderness to palpation. UA did show leuk esterase positive with however blood cells and +1 bacteria. Differential Diagnosis Differential diagnosis: Likely lumbar radiculopathy, renal colic, pyelonephritis and thoracic back pain Lab Data Attestation: I reviewed the patient's lab results. 10/28/23 14:26 10/28/23 14:26 Labs: Lab Results 10/28/23 10/28/23 Range/Unit
[2023-10-28] MEDS: HYDROcodone/acetaminophen (*CRX) 10-325 MG TABLET 1 TAB PO (13:20)
[2023-10-28 14:33] LABS: Basophils Percent Auto 0.3 % (0.2-1.2); Eosinophils Absolute Auto 0.1 K/mm3 (0-0.3); Eosinophils Percent Auto 0.9 % (0-4.4); Hematocrit 42.6 % (37.0-47.0); Hemoglobin 14.2 g/dL (12.0-15.0); Immature Granulocyte Absolute 0.03 K/mm3 (0.00-0.031); Immature Granulocyte Percent A 0.3 % (0-0.5); Lymphocytes Absolute Auto 3.43 K/mm3 (0.9-3.2); Lymphocytes Percent Auto 28.9 % (18.3-44.2); Mean Corpuscular HGB Conc 33.3 g/dl (32-36); Mean Corpuscular Hemoglobin 28.4 pg (26-34); Mean Corpuscular Volume 85.2 fl (80-100); Mean Platelet Volume 10.6 fl (7.4-10.4); Monocytes Absolute Auto 0.6 K/mm3 (0.1-0.6); Monocytes Percent Auto 4.8 % (2.6-8.5); Neutrophils Absolute Auto 7.7 K/mm3 (1.3-6.7); Neutrophils Percent Auto 64.8 % (45.5-73.1); Platelet Count Result 283 k/mm3 (150-375); Red Cell Distribution Width 13.7 % (11.5-14.5); White Blood Count 11.9 K/mm3 (4.5-10.0)
[2023-10-28 14:42] LABS: Alanine Aminotransferase 21 U/L (6-35); Albumin Level 4.3 g/dL (3.5-5.1); Alkaline Phosphatase 89 U/L (38-126); Anion Gap 7 mmol/L (4-12); Aspartate Amino Transferase 26 U/L (14-36); Bilirubin,Total 0.7 mg/dL (0.2-1.3); Blood Urea Nitrogen 8 mg/dL (7-17); Calcium 9.2 mg/dL (8.4-10.2); Carbon Dioxide 25 mmol/L (22-30); Chloride 106 mmol/L (98-107); Estimated CRCL calculation 202 ml/min; Estimated Glomerular Filt Rate > 60; Glucose 94 mg/dL (65-110); Lipase 31 U/L (23-300); Potassium 3.9 mmol/L (3.4-5.0); Sodium 138 mmol/L (137-145)
[2023-10-28 14:43] LABS: INR 0.9; Lactic Acid Reflex 0.9 mmol/L (0.7-2.0); Partial Thromboplastin Time 23.5 Seconds (22.3-36.8)
== END 2023-10-28 15:57 | disposition home or self-care (01) ==
PROVIDERS: Emergency Provider Emergency Medicine; PCP Physician Assistant
DX: N39.0 Urinary tract infection, site not specified (principal); R10.9 Unspecified abdominal pain; F41.9 Anxiety disorder, unspecified; F32.A Depression, unspecified
CPT/HCPCS: 36415; 74177; 80053; 81001; 81025; 83605; 83690; 85025; 85610; 85730; 87077; 87086; 87088; 99284; A9270; Q9967

== ENCOUNTER 2024-08-26 16:05 | Outpatient (CLI) | payer OTHER, SELFPAY ==
--- NOTE | ~2024-08-26 | XR_ITS ---
3 VIEWS LUMBAR SPINE Ordering provider: Jocelyn Carrera APRN History: . chronic low back pain, threw out again 3 days ago . Comparison: None. FINDINGS: VERTEBRAL BODIES: No visible fracture or subluxation. Levoscoliosis. DISK SPACES: Narrowing of the disc L4-L5. SOFT TISSUES: Normal. IMPRESSION: No acute osseous abnormality lumbar spine. Reviewed, dictated and finalized at location A. NICAL ILLUSTRATOR
--- NOTE | ~2024-08-26 | XR_ITS ---
XR knee LT 3V Ordering provider: Jocelyn Carrera APRN History: . chronic medial lt knee pain . Comparison: None. FINDINGS: BONES: No acute fracture or dislocation. JOINT SPACES: Normal. SOFT TISSUES: Normal. IMPRESSION: No acute osseous abnormality left knee. Reviewed, dictated and finalized at location A. STANT FOOTBALL COACH
--- OUTSIDE RECORDS SUMMARY | 2024-08-26 17:31 | XMS_ITS | Clinical Summary ---
Author Organization [facility] [address] Address [address] [place] [address] Care Team Providers Care Mash Filter Press Operator Name Role Phone Jam Ralph Primary Care Provider [phone] Allergies No known active allergies Medications JENCYCLA 0.35 mg tabletIndications : Contraception 0 8 Active ketorolac (TORADOL) 10 mg tablet Take 1 tablet (10 mg total) by mouth every 6 (six) hours as needed for pain Do not take NSAIDs in addition to this medication. Do not take on an empty stomach. 20 tablet 2 Active Additional Information Patient not taking.Reported on 04/13/2022 Active Problems Problem Noted Date Diagnosed Date Medical examinations/reports status 12/30/2012 Overview (09/27/2016): Health care maintenance Adiposity 12/30/2012 Overview (09/27/2016): Obesity Myopia 12/30/2012 Overview (09/27/2016): Myopia Knee pain 12/30/2012 Overview (09/28/2016): Right knee pain Immunizations Immunization Administration Dates Next Due DTaP 5 Pertussis 02/08/1999, 6,1994,07/20,1994 HPV, Quadrivalent 04/25/2010,06/29/2009,04/26/20 09 Hep B, Adolescent or Pediatric 1994,1993,1994 Hib (HbOC) 09/02/1995, 5,1994,04/27 MMR 02/08/1999,03/20/1995 Meningococcal Polysaccharide (Menomune) 04/26/2009 OPV 02/08/1999, 6,1994,07/20,1994 Tdap 04/26/2009 Tetanus toxoid, adsorbed 03/20/2004 Surgical History Surgery Date Site/Laterality Comments VAGINAL DELIVERY NO PAST SURGERIES Medical History Medical History Date Comments Hx Other Medical 1993 Haley's weight 8-2 Family History Medical History Relation Name Comments Hyperlipidemia Father Hyperlipidemi a; Other Father Leaky valve st omach as infant; Relation Name Status Comments Father Social History Tobacco Use Types Packs/Day Years Used Date Smoking Tobacco: Never Smokeless Tobacco: Never Alcohol Use Standard Drinks/Week Comments Yes 0 (1 standard drink = 0.6 oz pur e alcohol) Comments No Sex and Gender Information Value Date Recorded Sex Assigned at Not on file Legal Sex Female 2:07 AM SKEWER UP Gender Identity Not on file Sexual Orientation Not on file Obstetrics History Last Filed Vital Signs Vital Sign Reading Time Taken Comments Blood Pressure 102/64 04/13/2022 5:23 PM CDT Pulse 88 04/13/2022 5:23 PM CDT Temperature 36.5 C (97.7 F) 04/13/2022 5:23 PM CDT Respiratory Rate 16 04/13/2022 5:23 PM CDT Oxygen Saturation 98% 04/13/2022 5:23 PM CDT Inhaled Oxygen Concentration - - Weight 122.5 kg (270 lb) 04/13/2022 5:23 PM CDT Height 172.7 cm (5' 8 ) 04/13/2022 5:23 PM CDT Body Mass Index 41.05 04/13/2022 5:23 PM CDT Plan of Treatment Health Maintenance Due Date Last Done Comments Cervical Cancer Screening 1994 Depression Screening 1994 Hepatitis C Screening 1994 Varicella Vaccines (1 of 2 - 13+ 2-dose series) 2007 Regular Well Visit/Exam 18-64 02/22/2012 DTaP/Tdap/Td Vaccine (7 - Td or Tdap) 04/26/2019 04/26/2009, 03/20/2004, 02/08/1999, Additional history exists Influenza Vaccine (#1) 2024 HPV Vaccines Completed 04/25/2010, 11/2009, 04/26/2009 Pneumococcal vaccine <65 Aged Out No longer eligible based on patient's age to complete this topic Insurance [facility] PPO Care Teams Mash Filter Press Operator Relationship Specialty Start Date End Date Jam Ralph PA [address] [place] [address] PCP - General 10/11/21
--- OUTSIDE RECORDS SUMMARY | 2024-08-26 17:31 | XMS_ITS | Referral Summary ---
Author Organization [facility] [place] [address] [place] [address] Care Team Providers Care Retail Field Merchandiser Name Role Phone Jam Ralph Primary Care Provider [phone] Allergies No known active allergies Medications JENCYCLA [...] 6,1994,07/20,1994 Tdap 04/26/2009 Tetanus toxoid, adsorbed 03/20/2004 Social History Tobacco Use Types Packs/Day Years Used Date Smoking Tobacco: Never Smokeless Tobacco: Never Alcohol Use Standard Drinks/Week Comments Yes 0 (1 standard drink = 0.6 oz pur e alcohol) Comments No Sex and Gender Information Value Date Recorded Sex Assigned at Not on file 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
== END 2024-08-26 16:06 | disposition home or self-care (01) ==
LOC: ANHBWCIMG 16:06
PROVIDERS: PCP Nurse Practitioner Adult Health; Visit Provider Nurse Practitioner Adult Health
DX: M25.562 Pain in left knee (principal); M54.50 Low back pain, unspecified
CPT/HCPCS: 72100; 73562

== ENCOUNTER 2024-08-31 10:30 | Outpatient (CLI) | payer OTHER, SELFPAY ==
--- OUTSIDE RECORDS SUMMARY | 2024-08-31 12:19 | XMS_ITS | Referral Summary ---
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
--- OUTSIDE RECORDS SUMMARY | 2024-08-31 12:19 | XMS_ITS | Clinical Summary ---
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
--- OUTSIDE RECORDS SUMMARY | 2024-08-31 12:19 | XMS_ITS | Data Portability ---
Author Organization [facility] [place] Address [address] [facility] [place] [address] Care Team Providers Care Dial Brusher Name Role Phone JONATHAN RALPH Primary Care Provider Assessment No assessment recorded. Plan of Treatment Reminders Order Date Submit Date Provider Last Modified By Organization Details Last Modified Time Details Appointments None record ed. Lab CMP, serum or plasma 2019 020 [facility], [address] [place] [address], [facility] [address], [place], [address], 0 06:26:28 CBC 2019 020 [facility], [address] [place] [address], [address], [place], [address], 0 06:26:29 TSH, serum or plasma 2019 020 [facility], [address] [place] [address], [facility] [address], [place], [address], 0 06:26:30 lipid panel, serum 2019 020 [facility], [address] [place] [address], [address], [place], [address], 0 06:26:29 Referral None record ed. Procedures None record ed. Surgeries None record ed. Imaging MRI, lumbar spine, w/o contra st - xray negati ve...c luigi not effect horacio [address] [facility] [address], [place], [address], 2 09:46:11 Medication Orders buprop ion HCl SR 150 mg tablet ,12 hr sustai ash-re lease 2019 020 j[facility]lene [facility], [address] [place] [address], [address], 2 16:15:51 buprop ion HCl SR 150 mg tablet ,12 hr sustai ash-re lease 2019 020 [facility], [address] [place] [address], [address], 2 16:15:51 Patient TargetsNo targets recorded. Patient Instructions Encounter Date Encounter Id Patient Instructions Last Modified By Organization Details Last Modified Time 01/08/2020 [id number] When You Want to Lose Weight: Care Instructions jnanney Not available 01/08/2020 11:54:35 body mass index: care instructions jnanney Not available 01/08/2020 11:55:36 learning about healthy weight jnanney Not available 01/08/2020 11:55:36 02/03/2020 [id number] learning about mood disorders jnanney Not available 02/03/2020 15:43:18 follow in 3 months jnanney Not available 02/03/2020 15:43:35 05/05/2020 [id number] body mass index: care instructions jnanney Not available 05/05/2020 11:57:29 learning about healthy weight jnanney Not available 05/05/2020 11:57:29 refuses flu shot jnanney Not available 05/05/2020 11:58:26 01/22/2024 [id number] A healthy lifestyle: care instructions jnanney Not available 01/22/2024 16:02:54 Reason for Referral None Reported. Results Created Date Observation Date Name Description Value Unit Range Abnormal Flag Note LastModifiedBy Organization Detail LastModifiedTime 01/01/2001/04/2020 drug scree n, urine amphetamines , urine Negati ve NG/mL cutoff =1000 Amphe tamin e test inclu betzy Amphe tamin e and Metha mphet amine . Not Available [facility] ([facility]) [address] [place], [address], 01/04/2020 15:06:55 01/01/20 20 01/04/2020 drug scree n, urine barbiturate Negati ve NG/mL cutoff =300 Not Available [facility] ([facility]) [address] [place], [address], 01/04/2020 15:06:55 01/01/20 20 01/04/2020 drug scree n, urine benzodiazepi ingrid Negati ve NG/mL cutoff =300 Not Available [facility] ([facility]) [address] [place], [address], 01/04/2020 15:06:55 01/01/20 20 01/04/2020 drug scree n, urine cannabinoid Negati ve NG/mL cutoff =50 Not Available [facility] ([facility]) [address] [place], [address], 01/04/2020 15:06:55 01/01/20 20 01/04/2020 drug scree n, urine cocaine (metab.) Negati ve NG/mL cutoff =300 Not Available [facility] ([facility]) [address] [place], [address], 01/04/2020 15:06:55 01/01/20 20 01/04/2020 drug scree n, urine opiates Negati ve NG/mL cutoff =300 Opiat e test inclu betzy Codei ne and Morph ine only. Not Available [facility] ([facility]) [address] [place], [address], 01/04/2020 15:06:55 01/01/20 20 01/04/2020 drug scree n, urine phencyclidin e Negati ve NG/mL cutoff =25 Not Available [facility] ([facility]) [address] [place], [address], 01/04/2020 15:06:55 01/01/20 20 01/04/2020 drug scree n, urine methadone screen, urine Negati ve NG/mL cutoff =300 Not Available [facility] ([facility]) [address] [place], [address], 01/04/2020 15:06:55 01/01/20 20 01/04/2020 drug scree n, urine propoxyphene , urine Negati ve NG/mL cutoff =300 Not Available [facility] ([facility]) [address] [place], [address], 01/04/2020 15:06:55 01/08/20 20 01/09/2020 CMP, serum or plasm a glucose 96 mg/dL 65-99 Not Available [facility] ([facility]) [address] [place], [address], 01/13/2020 06:26:28 01/08/20 20 01/09/2020 CMP, serum or plasm a BUN 11 mg/dL 6-20 Not Available [facility] ([facility]) [address] [place], [address], 01/13/2020 06:26:28 01/08/20 20 01/09/2020 CMP, serum or plasm a creatinine 0.63 mg/dL 0.57-1 .00 Not Available [facility] ([facility]) [address] [place], [address], 01/13/2020 06:26:28 01/08/20 20 01/09/2020 CMP, serum or plasm a eGFR if nonafricn AM 125 mL/mi n/1.7 3 >59 Not Available [facility] ([facility]) [address] [place], [address], 01/13/2020 06:26:28 01/08/20 20 01/09/2020 CMP, serum or plasm a eGFR if africn AM 144 mL/mi n/1.7 3 >59 Not Available [facility] ([facility]) [address] [place], [address], 01/13/2020 06:26:28 01/08/20 20 01/09/2020 CMP, serum or plasm a BUN/creatini ne ratio 17 9-23 Not Available [facility]) [address] [place], [address], 01/13/2020 06:26:28 01/08/20 20 01/09/2020 CMP, serum or plasm a sodium 138 mmol/ L 134-14 4 Not Available [facility] ([facility]) [address] [place], [address], 01/13/2020 06:26:28 01/08/2001/09/2020 CMP, serum or plasm a potassium 4.8 mmol/ L 3.5-5. 2 Not Available [facility] ([facility]) [address] [place], [address], 01/13/2020 06:26:28 01/08/2001/09/2020 CMP, serum or plasm a chloride 100 mmol/ L 96-106 Not Available [facility] ([facility]) [address] [place], [address], 01/13/2020 06:26:28 01/08/20 20 01/09/2020 CMP, serum or plasm a carbon dioxide, total 21 mmol/ L 20-29 Not Available [facility] ([facility]) [address] [place], [address], 01/13/2020 06:26:28 01/08/2001/09/2020 CMP, serum or plasm a calcium 9.5 mg/dL 8.7-10 .2 Not Available [facility] ([facility]) [address] [place], [address], 01/13/2020 06:26:28 01/08/2001/09/2020 CMP, serum or plasm a protein, total 7.1 g/dL 6.0-8. 5 Not Available [facility] ([facility]) [address] [place], [address], 01/13/2020 06:26:28 01/08/2001/09/2020 CMP, serum or plasm a albumin 4.4 g/dL 3.9-5. 0 Not Available [facility] ([facility]) [address] [place], [address], 01/13/2020 06:26:28 01/08/2001/09/2020 CMP, serum or plasm a globulin, total 2.7 g/dL 1.5-4. 5 Not Available [facility] ([facility]) [address] [place], [address], 01/13/2020 06:26:28 01/08/2001/09/2020 CMP, serum or plasm a A/G ratio 1.6 1.2-2. 2 Not Available [facility] ([facility]) [address] [place], [address], 01/13/2020 06:26:28 01/08/20 20 01/09/2020 CMP, serum or plasm a bilirubin, total 0.3 mg/dL 0.0-1. 2 Not Available [facility] ([facility]) [address] [place], [address], 01/13/2020 06:26:28 01/08/2001/09/2020 CMP, serum or plasm a alkaline phosphatase 94 IU/L 39-117 Not Available [facility] [address] [place], [address], 01/13/2020 06:26:28 01/08/2001/09/2020 CMP, serum or plasm a AST (SGOT) 16 IU/L 0-40 Not Available [facility] ([facility]) [address] [place], [address], 01/13/2020 06:26:28 01/08/20 20 01/09/2020 CMP, serum or plasm a ALT (SGPT) 17 IU/L 0-32 Not Available [facility] ([facility]) [address] [place], [address], 01/13/2020 06:26:28 01/08/2001/09/2020 CBC WBC 8.1 x10e3 /uL 3.4-10 .8 Not Available [facility] ([facility]) [address] [place], [address], 01/13/2020 06:26:29 01/08/2001/09/2020 CBC RBC 5.22 x10e6 /uL 3.77-5 .28 Not Available [facility] ([facility]) [address], [place], [address], 01/13/2020 06:26:29 01/08/2001/09/2020 CBC hemoglobin 15.1 g/dL 11.1-1 5.9 Not Available [facility] ([facility]) [address] [place], [address], 01/13/2020 06:26:29 01/08/2001/09/2020 CBC hematocrit 45.4 % 34.0-4 6.6 Not Available [facility] ([facility]) [address], [place], [address], 01/13/2020 06:26:29 01/08/2001/09/2020 CBC MCV 87 fL 79-97 Not Available [facility] ([facility]) [address] [place], [address], 01/13/2020 06:26:29 01/08/2001/09/2020 CBC MCH 28.9 pg 26.6-3 3.0 Not Available [facility] ([facility]) [address], [place], [address], 01/13/2020 06:26:29 01/08/20 20 01/09/2020 CBC MCHC 33.3 g/dL 31.5-3 5.7 Not Available [facility] ([facility]) [address], [place], [place], [address], 01/13/2020 06:26:29 01/08/20 20 01/09/2020 CBC RDW 13.3 % 11.7-1 5.4 Not Available [facility] ([facility]) [address], [place], [place], [address], 01/13/2020 06:26:29 01/08/2001/09/2020 CBC platelets 282 x10e3 /uL 150-45 0 Not Available [facility] (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) [address], [place], [place], [address], 01/13/2020 06:26:29 01/08/20 20 01/09/2020 lipid panel , serum cholesterol, total 184 mg/dL 100-19 9 Not Available [facility] ([facility]) [address], [place], [place], [address], 01/13/2020 06:26:29 01/08/20 20 01/09/2020 lipid panel , serum triglyceride s 117 mg/dL 0-149 Not Available [facility] [address], [place], [place], [address], 01/13/2020 06:26:29 01/08/20 20 01/09/2020 lipid panel , serum HDL cholesterol 43 mg/dL >39 Not Available [facility] [address], [place], [place], [address], 01/13/2020 06:26:29 01/08/20 20 01/09/2020 lipid panel , serum VLDL cholesterol vicky 23 mg/dL 5-40 Not Available [facility]) [address] [place], [address], 01/13/2020 06:26:29 01/08/20 20 01/09/2020 lipid panel , serum LDL cholesterol calc 118 mg/dL 0-99 above high normal Not Available [facility] ([facility]) [address], [place], [place], [address], 01/13/2020 06:26:29 01/08/2001/09/2020 lipid panel , serum comment: WAREHOUSE ADMINISTRATOR Not Available [facility] ([facility]) [address], [place], [place], [address], 01/13/2020 06:26:29 01/08/2001/12/2020 TSH, serum or plasm a TSH-icma 1.6 uu/mL Refer ence Range : Non-P regna nt Adult 0.450 -4.50 0 Pregn bria First Trime ster 0.100 -4.00 0 Secon d Trime ster 0.200 -4.00 0 Third Trime ster 0.300 -4.50 0 Not Available [facility] [address] [place], [address], 01/13/2020 06:26:30 01/08/2001/09/2020 cardi ovasc ular asses sment panel , serum interpretati on Note Suppl emjama al repor t is avail able. Not Available [facility] ([facility]) [address], [place], [place], [address], 01/13/2020 06:26:30 01/08/2001/09/2020 cardi ovasc ular asses sment panel , serum pdf . Not Available [facility] ([facility]) [address], [place], [place], [address], 01/13/2020 06:26:30 Result Notes None recorded. Problems No Known Problems Procedures Surgical History Date Name Laterality Status Provider Name and Address Organization Details Recorded Time 07/25/2021 Date of Last Pap Smear completed Lala Walden [place] [facility] 09/20/2021 16:17:35 Imaging Results None recorded. Procedure Notes None recorded. Medical Equipment None Reported. Allergies No known drug allergies Medications Name Sig Start Date Stop Date Status Note LastModified by Organization Details LastModified Time bupropion HCl SR 150 mg tablet,12 hr sustained-re lease Take 1 tablet twice a day by oral route for 90 days. 09/20 completed Not Available Not Available Not Available ibuprofen 800 mg tablet 12/31 completed Not Available Not Available Not Available hydrocodone 5 mg-acetamino phen 325 mg tablet TAKE 1 TABLET BY MOUTH EVERY 4 HOURS NEEDED FOR PAIN 01/21 completed Not Available Not Available Not Available ciprofloxaci n 500 mg tablet TAKE 1 TABLET BY MOUTH TWICE A DAY 01/21 completed Not Available Not Available Not Available phenazopyrid ine 100 mg tablet TAKE 1 TABLET BY MOUTH THREE TIMES A DAY NEEDED FOR PAIN FOR 6 DOSES 01/21 completed Not Available Not Available Not Available cephalexin 500 mg capsule TAKE 1 CAPSULE BY MOUTH EVERY 8 HOURS FOR 7 DAYS 01/21 completed Not Available Not Available Not Available gabapentin 300 mg capsule Take 1 capsule 3 times a day by oral route for 30 days. 09/20 completed Not Available Not Available Not Available norethindron e (contracepti ve) 0.35 mg tablet TAKE 1 TABLET BY MOUTH EVERY DAY 01/21 completed Not Available Not Available Not Available sertraline 50 mg tablet TAKE 1 TABLET BY MOUTH ONCE DAILY active Not Available Not Available No t Available Vitals Date Recorded Body height Body temperature Body mass index (BMI) Body weight Oxygen saturation Oxygen saturation in Arterial blood by Pulse oximetry Heart rate Systolic blood pressure Diastolic blood pressure Provider Name and Address Organization Details Last Updated DateTime 0 175.26 cm 97.8 [degF] 41.8 kg/m2 433233. 36 g 98 % 98 % 97 /min 122 mm[Hg] 78 mm[Hg] Sravanthi Raines [place] [facility] 0 11:26:23 Date Recorded Body height Body mass index (BMI) Body weight Oxygen saturation Oxygen saturation in Arterial blood by Pulse oximetry Heart rate Body temperature Systolic blood pressure Diastolic blood pressure Provider Name and Address Organization Details Last Updated DateTime 0 175.26 cm 41.8 kg/m2 224536. 64 g 98 % 98 % 65 /min 97.6 [degF] 104 mm[Hg] 68 mm[Hg] Oralia Grande MA [facility] 0 15:29:25 Date Recorded Body height Body temperature Oxygen saturation Oxygen saturation in Arterial blood by Pulse oximetry Heart rate Body mass index (BMI) Body weight Systolic blood pressure Diastolic blood pressure Provider Name and Address Organization Details Last Updated DateTime 0 175.26 cm 96.8 [degF] 98 % 98 % 66 /min 41 kg/m2 143643. 19 g 118 mm[Hg] 76 mm[Hg] Lala Ontiveros MA [facility] 0 11:33:28 Date Recorded Body temperature Oxygen saturation Oxygen saturation in Arterial blood by Pulse oximetry Heart rate Body weight Systolic blood pressure Diastolic blood pressure Provider Name and Address Organization Details Last Updated DateTime 2 97.6 [degF] 98 % 98 % 79 /min 566459. 52 g 114 mm[Hg] 76 mm[Hg] Lala gallardo MA [facility] 2 16:22:10 Date Recorded Body weight Body mass index (BMI) Body height Oxygen saturation Oxygen saturation in Arterial blood by Pulse oximetry Heart rate Systolic blood pressure Diastolic blood pressure Provider Name and Address Organization Details Last Updated DateTime 4 766753. 86 g 41.3 kg/m2 175.26 cm 99 % 99 % 68 /min 126 mm[Hg] 68 mm[Hg] Dayana Chandler MA [facility] 4 15:39:40 Social History Question Answer Notes LastModified by Organizat ion Details LastModified Time Tobacco Smoking Status Never Smoker Oralia Grande MA null, [facility] 01/01/2020 10:51:38 What Is Your Level Of Alcohol Consumption? Occasional Information not available 01/08/2020 What Is Your Level Of Caffeine Consumption? Occasional Information not available 01/08/2020 How Much Tobacco Do You Chew? None Information not available 01/08/2020 In The 14 Days Before Symptom Onset, Have You Had Close Contact With A Laboratory-confir med COVID-19 While That Case Was Ill? No Information not available 09/20/2021 In The 14 Days Before Symptom Onset, Have You Had Close Contact With A Person Who Is Under Investigation For COVID-19 While That Person Was Ill? No Information not available 09/20/2021 Have You Been To An Area Known To Be High Risk For COVID-19? No Information not available 09/20/2021 Are You Currently Employed? No Information not available 01/08/2020 What Type Of Diet Are You Following? REGULAR Information not available 01/08/2020 Which Illicit Or Recreational Drugs Have You Used? None Information not available 01/08/2020 Do You Or Have You Ever Used E-cigarettes Or Vape? Never Used Electronic Cigarettes Information not available 01/08/2020 Education 12 Information no t available 01/08/2020 Live Alone Or With Others? With Others Information not available 01/08/2020 What Was The Date Of Your Most Recent Tobacco Screening? 01/22/2024 Information not available 01/22/2024 Do You Have Smoke And Carbon Monoxide Detectors In Your Home? Yes Information not available 09/20/2021 Do You Or Have You Ever Used Smokeless Tobacco? Never Used Smokeless Tobacco Information not available 01/08/2020 General Stress Level Medium Information not available 01/08/2020 Do You Feel Stressed (tense, Restless, Nervous, Or Anxious, Or Unable To Sleep At Night)? [id number] Information not available 09/20/2021 On What Date Was Tobacco Cessation Counseling Provided? 01/22/2024 Information not available 01/22/2024 Sex: Female Functional Status Question Answer Note LastModified by Organization D etails LastModified Time Are you able to care for yourself? Yes Information n ot available 01/08/2020 Mental Status None recorded. Family History Relationship Description Onset Age of this Age Resolved Age Notes LastModified by Organization Details LastModified Time Father Hypertensive disorder [email or web address] Not available 03/2020 10:51:33 Medical History Condition Response Coronary Artery Disease N Other N High Blood Pressure N Atrial Fibrillation N Kidney or Bladder Problems N Thyroid Problems N Blood Clots N COPD N Depression N GI Problems N Skin Problems N Eating Disorder N Anemia N Heart Attack ([place]) N Anxiety Disorder N Diabetes N Muscle, Joint, or Bone Problems N Seizures/Epilepsy N Acid Reflux (GERD) N Cancer N Stroke N Asthma N Allergies N ADHD N Substance Abuse N High Cholesterol N Hepatitis N Liver Disease N Schizophrenia N Headaches N Heart Failure N Osteoporosis N Gynecological History Statement/Question Response Date of LMP 01/03/2024 Menses Monthly Y Date of Last Pap Smear 07/25/2021 Duration of Flow (days) 5 Age at Menarche 14 Current Control Method None Age at First Child 23 Obstetrics History GPAL:G 1 P 1 0 0 1 Type Value Full Term 1 Living 1 Total 1 Past Encounters Encounter ID Performer Location Encounter Start Date Encounter Closed Date Diagnosis/Indication Diagnosis SNOMED-CT Code Diagnosis ICD10 Code Diagnosis Note [id number] JACINTO Avila [facility] [address] [place] [address] 01/01/2020 10:44:58 01/04/2020 08:22:05 Adult health examination 953946032 Z00.00 [id number] JACINTO Avila [facility] [address] [place] [address] 01/08/2020 11:18:15 01/08/2020 12:48:01 Morbid obesity 378664714 E66.01 Body mass index 30+ - obesity 596342128 Z68.41 Chronic depression 95681 0009 F34.1 [id number] JACINTO Avila [address] [place] [address] 02/03/2020 15:24:28 02/04/2020 06:45:23 Depressive disorder 67292713 F32.0 [id number] [facility] [address] [place] [address] 05/05/2020 11:29:05 05/06/2020 12:35:42 Chronic depression 325585233 F34.1 Body mass index 40+ - severely obese 140039033 Z68.41 [id number] Jonathan Ralph PA-C [facility] [address] [place] [address] 09/20/2021 15:44:16 09/20/2021 16:50:52 Right side sciatica 5218059854 32726 M54.31 [id number] Jonathan Ralph PA-C [facility] [address] [place] [address] 01/22/2024 15:15:50 01/24/2024 14:13:20 Adult health examination 496037763 Z00.00 Overweight 554617237 E66 .3 Health Concerns Section Related Observation LastModified by Organization Detai ls LastModified Time None Recorded Concern Status LastModified by Organization Details LastModified Time None Recorded Advance Directives Directive None Recorded Payers Encounter Date Sequence Insurance Name Policy Number Policy Downing Covered Member ID Downing Member ID Guarantor Name 01/08/2020 2 [place] [employer] [facility] Haley Garrett [id number] Haleysaurabh Arce 01/08/2020 1 [place] [facility] Haley Tucker [id number] Haleysaurabh Arce 02/03/2020 2 [place] [employer] [facility] Haley Tucker [id number] Haleysaurabh Arce 02/03/2020 2 [facility] (MEDICAID HMO) [id number] Haley Tucker [id number] Haleysaurabh Arce 05/05/2020 2 [place] [employer] [facility] Haley Garrett [id number] Haleysaurabh Arce 05/05/2020 2 [facility] (MEDICAID HMO) [id number] Haley Tucker [id number] Haley Arce 09/20/2021 2 [facility] (MEDICAID HMO) [id number] Haley Tucker [id number] Haleysaurabh Arce 09/20/2021 1 [employer] Erwin Arce [id number] Haley Arce 01/22/2024 1 [employer] Erwin Arce [id number] Haley Arce Notes Date Note Type Note Provider Name and Address Organization Details Recorded Time 01/08/2020 text/html needs lab work...used to take meds a long time ago for depression...wants to return to an anti depressant Jonathan Ralph PA-C Attn: [address] [facility], [place], [address], [facility] 01/08/2020 12:00:45 02/03/2020 text/html follow up on wellbutrin...doing well..no side effects.. Jonathan Ralph PA-C Attn: [address] [facility], [place], [address], [facility] 02/03/2020 15:43:57 05/05/2020 text/html Haley parra is a 25 y/o female with PMHx of depression who presents to clinic today for 3 month follow up after starting Wellbutrin. Patient reports that her mood is much better. She reports she wants to be active, going on walks most days, noticed her appetite has decreased but notes she was overeating when depressed. Patient reports she will get intermittent mild, vague headaches when taking the Wellbutrin sometimes. She takes Tylenol for MACHADO, which resolves her symptoms. Patient admits her sleep is much better than before. Patient lives at home with her fiancevandana (15 y/o), and her son (2 y/o). Jonathan Ralph PA-C Attn: Accounting[address] [facility], [place], [address], [facility] 05/05/2020 11:59:02 09/20/2021 text/html Haley parra is a 26 year old female who presents for back pain. She would like an MRI. She describes the pain as excruciating and it gets worse throughout the day and when she sits and drives her car. The pain begins in her lower back and radiates down her right leg. It feels tingly . She has been seeing a chiropractor who did an xray, which was inconclusive. The chiropractor diagnosed her with a pinched sciatic nerve and has been working with her for a month without improvement. The chiropractor performed ozone therapy. She was also given a steroid pack which only helped for a few hours before the pain came back. She has an appointment with a spinal and neurosurgeon, Dr. Suárez at [facility] in [place], on October 17, but this specialist needs an MRI done before she goes to see him. She denies numbness, changes in bowel or bladder habits, n/v/fever. Jonathan Ralph PA-C Attn: [address] [place], [address], [facility] 09/20/2021 16:48:14 01/22/2024 text/html well adult...no complaints Jonathan Ralph PA-C Attn: [address] [place], [address], [facility] 01/22/2024 16:04:12 OBGyn Episode No OBEpisode recorded.
[2024-08-31 18:44] LABS: Hematocrit 46.3 % (37.0-47.0); Hemoglobin 14.7 g/dL (12.0-15.0); Mean Corpuscular HGB Conc 31.7 g/dl (32-36); Mean Corpuscular Hemoglobin 28.4 pg (26-34); Mean Corpuscular Volume 89.4 fl (80-100); Mean Platelet Volume 11.6 fl (7.4-10.4); Platelet Count Result 295 k/mm3 (150-375); Red Blood Count 5.18 M/mm3 (4.2-5.4); Red Cell Distribution Width 13.6 % (11.5-14.5); White Blood Count 8.5 K/mm3 (4.5-10.0)
[2024-08-31 18:54] LABS: Alanine Aminotransferase 25 U/L (6-35); Albumin Level 4.4 g/dL (3.5-5.1); Alkaline Phosphatase 94 U/L (38-126); Anion Gap 12 mmol/L (4-12); Aspartate Amino Transferase 71 U/L (14-36); Bilirubin,Total 0.7 mg/dL (0.2-1.3); Blood Urea Nitrogen 10 mg/dL (7-17); Calcium 9.3 mg/dL (8.4-10.2); Carbon Dioxide 23 mmol/L (22-30); Chloride 106 mmol/L (98-107); Cholesterol 181 mg/dL (0-200); Estimated Glomerular Filt Rate > 60; Glucose 66 mg/dL (65-110); HDL Direct 47 mg/dL; Potassium 4.1 mmol/L (3.4-5.0); Sodium 141 mmol/L (137-145); Triglycerides 117 mg/dL (<150)
[2024-08-31 19:04] LABS: LDL Cholesterol Direct 92 mg/dL
[2024-08-31 20:28] LABS: Hemoglobin A1C 4.7 % (<5.7)
== END 2024-08-31 10:31 | disposition home or self-care (01) ==
LOC: ANHBWCLAB 10:31
PROVIDERS: PCP Nurse Practitioner Adult Health; Visit Provider Nurse Practitioner Adult Health
DX: Z13.9 Encounter for screening, unspecified (principal); E66.9 Obesity, unspecified
CPT/HCPCS: 36415; 80053; 80061; 83036; 84443; 85027

== ENCOUNTER 2024-09-24 17:33 | Emergency (ER) | payer OTHER, SELFPAY ==
--- NOTE | ~2024-09-24 | XR_ITS ---
EXAM: XR foot LT min 3V DATE: 09/24/2024 18:00 HISTORY: pain after fall . COMPARISON: None available. FINDINGS: Normal mineralization. Transverse, extra-articular fracture at the base of fifth metatarsa l, with 2 mm distraction. No lytic or blastic lesion. Joint spaces are maintained. Mild hallux valgus . Os articularis. Os peroneus. No erosion or periosteal change. Soft tissues within normal limits. IMPRESSION: Mildly distracted fifth metatarsal base avulsion fracture. Reviewed, dictated and finalized at location K.
--- OUTSIDE RECORDS SUMMARY | 2024-09-24 17:34 | XMS_ITS | Clinical Summary ---
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
--- OUTSIDE RECORDS SUMMARY | 2024-09-24 17:34 | XMS_ITS | Data Portability ---
Author Organization [facility] [place] Address [address] [facility] [place] [address] Care Team Providers Care Map Maker Name Role Phone JONATHAN RALPH Primary Care Provider Assessment No assessment recorded. Plan of Treatment Reminders Order Date Submit Date Provider Last Modified By Organization Details Last Modified Time Details Appointments None record ed. Lab CMP, serum or plasma 2019 020 [facility], [address] [place] [address], [facility] [address], [place], [address], 0 06:26:28 CBC 2019 020 [facility], [address] [place] [address], [address], [place], [address], 0 06:26:29 TSH, serum or plasma 2019 020 [facility], [address] [place] [address], [address], [place], [address], 0 06:26:30 lipid panel, serum 2019 020 [facility], [address] [place] [address], [address], [place], [address], 0 06:26:29 Referral None record ed. Procedures None record ed. Surgeries None record ed. Imaging MRI, lumbar spine, w/o contra st - xray negati ve...c luigi not effect horacio [address] [facility] [address], [place], [address], 2 09:46:11 Medication Orders buprop ion HCl SR 150 mg tablet ,12 hr sustai ash-re lease 2019 020 [facility], [address] [place] [address], [address], 2 16:15:51 buprop ion HCl SR 150 mg tablet ,12 hr sustai ash-re lease 2019 020 [facility], [address] [place] [address], [address], 2 16:15:51 Patient TargetsNo targets recorded. Patient Instructions Encounter Date Encounter Id Patient Instructions Last Modified By Organization Details Last Modified Time 01/08/2020 [id number] When You Want to Lose Weight: Care Instructions jnanney Not available 01/08/2020 11:54:35 body mass index: care instructions jnanney Not available 01/08/2020 11:55:36 learning about healthy weight jnanney Not available 01/08/2020 11:55:36 02/03/2020 [id number] learning about mood disorders jnanney Not available 02/03/2020 15:43:18 follow in 3 months jnanney Not available 02/03/2020 15:43:35 05/05/2020 [id number] body mass index: care instructions jnanney Not available 05/05/2020 11:57:29 learning about healthy weight jnanney Not available 05/05/2020 11:57:29 refuses flu shot jnanney Not available 05/05/2020 11:58:26 01/22/2024 [id number] A healthy lifestyle: care instructions jnanney Not available 01/22/2024 16:02:54 Reason for Referral None Reported. Results Created Date Observation Date Name Description Value Unit Range Abnormal Flag Note LastModifiedBy Organization Detail LastModifiedTime 01/01/2001/04/2020 drug scree n, urine amphetamines , urine Negati ve NG/mL cutoff =1000 Amphe tamin e test inclu betzy Amphe tamin e and Metha mphet amine . Not Available [facility] ([facility]) [address] [place], [address], 01/04/2020 15:06:55 01/01/20 20 01/04/2020 drug scree n, urine barbiturate Negati ve NG/mL cutoff =300 Not Available [facility] ([facility]) [address] [place], [address], 01/04/2020 15:06:55 01/01/20 20 01/04/2020 drug scree n, urine benzodiazepi ingrid Negati ve NG/mL cutoff =300 Not Available [facility] ([facility]) [address] [place], [address], 01/04/2020 15:06:55 01/01/20 20 01/04/2020 drug scree n, urine cannabinoid Negati ve NG/mL cutoff =50 Not Available [facility] ([facility]) [address] [place], [address], 01/04/2020 15:06:55 01/01/20 20 01/04/2020 drug scree n, urine cocaine (metab.) Negati ve NG/mL cutoff =300 Not Available [facility] ([facility]) [address] [place], [address], 01/04/2020 15:06:55 01/01/20 20 01/04/2020 drug scree n, urine opiates Negati ve NG/mL cutoff =300 Opiat e test inclu betzy Codei ne and Morph ine only. Not Available [facility] ([facility]) [address] [place], [address], 01/04/2020 15:06:55 01/01/20 20 01/04/2020 drug scree n, urine phencyclidin e Negati ve NG/mL cutoff =25 Not Available [facility] ([facility]) [address] [place], [address], 01/04/2020 15:06:55 01/01/20 20 01/04/2020 drug scree n, urine methadone screen, urine Negati ve NG/mL cutoff =300 Not Available [facility] ([facility]) [address] [place], [address], 01/04/2020 15:06:55 01/01/20 20 01/04/2020 drug scree n, urine propoxyphene , urine Negati ve NG/mL cutoff =300 Not Available [facility] ([facility]) [address] [place], [address], 01/04/2020 15:06:55 01/08/20 20 01/09/2020 CMP, serum or plasm a glucose 96 mg/dL 65-99 Not Available [facility] ([facility]) [address] [place], [address], 01/13/2020 06:26:28 01/08/20 20 01/09/2020 CMP, serum or plasm a BUN 11 mg/dL 6-20 Not Available [facility] ([facility]) [address] [place], [address], 01/13/2020 06:26:28 01/08/20 20 01/09/2020 CMP, serum or plasm a creatinine 0.63 mg/dL 0.57-1 .00 Not Available [facility] ([facility]) [address] [place], [address], 01/13/2020 06:26:28 01/08/20 20 01/09/2020 CMP, serum or plasm a eGFR if nonafricn AM 125 mL/mi n/1.7 3 >59 Not Available [facility] ([facility]) [address] [place], [address], 01/13/2020 06:26:28 01/08/20 20 01/09/2020 CMP, serum or plasm a eGFR if africn AM 144 mL/mi n/1.7 3 >59 Not Available [facility] ([facility]) [address] [place], [address], 01/13/2020 06:26:28 01/08/20 20 01/09/2020 CMP, serum or plasm a BUN/creatini ne ratio 17 9-23 Not Available [facility] ([facility]) [address] [place], [address], 01/13/2020 06:26:28 01/08/20 20 01/09/2020 CMP, serum or plasm a sodium 138 mmol/ L 134-14 4 Not Available [facility] ([facility]) [address] [place], [address], 01/13/2020 06:26:28 01/08/2001/09/2020 CMP, serum or plasm a potassium 4.8 mmol/ L 3.5-5. 2 Not Available [facility] ([facility]) [address] [place], [address], 01/13/2020 06:26:28 01/08/2001/09/2020 CMP, serum or plasm a chloride 100 mmol/ L 96-106 Not Available [facility] ([facility]) [address] [place], [address], 01/13/2020 06:26:28 01/08/20 20 01/09/2020 CMP, serum or plasm a carbon dioxide, total 21 mmol/ L 20-29 Not Available [facility] ([facility]) [address] [place], [address], 01/13/2020 06:26:28 01/08/2001/09/2020 CMP, serum or plasm a calcium 9.5 mg/dL 8.7-10 .2 Not Available [facility] ([facility]) [address] [place], [address], 01/13/2020 06:26:28 01/08/2001/09/2020 CMP, serum or plasm a protein, total 7.1 g/dL 6.0-8. 5 Not Available [facility] ([facility]) [address] [place], [address], 01/13/2020 06:26:28 01/08/2001/09/2020 CMP, serum or plasm a albumin 4.4 g/dL 3.9-5. 0 Not Available [facility] ([facility]) [address] [place], [address], 01/13/2020 06:26:28 01/08/2001/09/2020 CMP, serum or plasm a globulin, total 2.7 g/dL 1.5-4. 5 Not Available [facility] ([facility]) [address] [place], [address], 01/13/2020 06:26:28 01/08/2001/09/2020 CMP, serum or plasm a A/G ratio 1.6 1.2-2. 2 Not Available [facility] ([facility]) [address] [place], [address], 01/13/2020 06:26:28 01/08/20 20 01/09/2020 CMP, serum or plasm a bilirubin, total 0.3 mg/dL 0.0-1. 2 Not Available [facility] ([facility]) [address] [place], [address], 01/13/2020 06:26:28 01/08/2001/09/2020 CMP, serum or plasm a alkaline phosphatase 94 IU/L 39-117 Not Available [facility]) [address] [place], [address], 01/13/2020 06:26:28 01/08/2001/09/2020 CMP, serum or plasm a AST (SGOT) 16 IU/L 0-40 Not Available [facility] ([facility]) [address] [place], [address], 01/13/2020 06:26:28 01/08/20 20 01/09/2020 CMP, serum or plasm a ALT (SGPT) 17 IU/L 0-32 Not Available [facility] ([facility]) [address] [place], [address], 01/13/2020 06:26:28 01/08/2001/09/2020 CBC WBC 8.1 x10e3 /uL 3.4-10 .8 Not Available [facility] ([facility]) [address] [place], [address], 01/13/2020 06:26:29 01/08/2001/09/2020 CBC RBC 5.22 x10e6 /uL 3.77-5 .28 Not Available [facility] ([facility]) [address] [place], [address], 01/13/2020 06:26:29 01/08/2001/09/2020 CBC hemoglobin 15.1 g/dL 11.1-1 5.9 Not Available [facility] ([facility]) [address] [place], [address], 01/13/2020 06:26:29 01/08/2001/09/2020 CBC hematocrit 45.4 % 34.0-4 6.6 Not Available [facility] ([facility]) [address] [place], [address], 01/13/2020 06:26:29 01/08/2001/09/2020 CBC MCV 87 fL 79-97 Not Available [facility] ([facility]) [address] [place], [address], 01/13/2020 06:26:29 01/08/2001/09/2020 CBC MCH 28.9 pg 26.6-3 3.0 Not Available [facility] ([facility]) [address] [facility] [place], [address], 01/13/2020 06:26:29 01/08/20 20 01/09/2020 CBC MCHC 33.3 g/dL 31.5-3 5.7 Not Available [facility] ([facility]) [address] [facility], [place], [address], 01/13/2020 06:26:29 01/08/20 20 01/09/2020 CBC RDW 13.3 % 11.7-1 5.4 Not Available [facility] ([facility]) [address] [facility], [place], [address], 01/13/2020 06:26:29 01/08/2001/09/2020 CBC platelets 282 x10e3 /uL 150-45 0 Not Available [facility] ([facility]) [address] [facility], [place], [address], 01/13/2020 06:26:29 01/08/20 20 01/09/2020 CBC NRBC FREELANCE DATA ENTRY Not Available [facility] ([facility]) [address] [facility], [place], [address], 01/13/2020 06:26:29 01/08/20 20 01/09/2020 lipid panel , serum cholesterol, total 184 mg/dL 100-19 9 Not Available [facility] ([facility]) [address] [facility], [place], [address], 01/13/2020 06:26:29 01/08/20 20 01/09/2020 lipid panel , serum triglyceride s 117 mg/dL 0-149 Not Available [facility] ([facility]) [address] [facility], [place], [address], 01/13/2020 06:26:29 01/08/20 20 01/09/2020 lipid panel , serum HDL cholesterol 43 mg/dL >39 Not Available [facility] ([facility]) [address] [facility], [place], [address], 01/13/2020 06:26:29 01/08/20 20 01/09/2020 lipid panel , serum VLDL cholesterol vicky 23 mg/dL 5-40 Not Available [facility] ([facility]) [address] [place], [address], 01/13/2020 06:26:29 01/08/20 20 01/09/2020 lipid panel , serum LDL cholesterol calc 118 mg/dL 0-99 above high normal Not Available [facility] ([facility]) [address] [facility], [place], [address], 01/13/2020 06:26:29 01/08/2001/09/2020 lipid panel , serum comment: FREELANCE DATA ENTRY Not Available [facility] ([facility]) [address] [facility], [place], [address], 01/13/2020 06:26:29 01/08/2001/12/2020 TSH, serum or plasm a TSH-icma 1.6 uu/mL Refer ence Range : Non-P regna nt Adult 0.450 -4.50 0 Pregn bria First Trime ster 0.100 -4.00 0 Secon d Trime ster 0.200 -4.00 0 Third Trime ster 0.300 -4.50 0 Not Available [facility] [address] [place], [address], 01/13/2020 06:26:30 01/08/2001/09/2020 cardi ovasc ular asses sment panel , serum interpretati on Note Suppl emjama al repor t is avail able. Not Available [facility] ([facility]) [address] [facility], [place], [address], 01/13/2020 06:26:30 01/08/2001/09/2020 cardi ovasc ular asses sment panel , serum pdf . Not Available [facility] ([facility]) [address] [facility], [place], [address], 01/13/2020 06:26:30 Result Notes None recorded. Problems No Known Problems Procedures Surgical History Date Name Laterality Status Provider Name and Address Organization Details Recorded Time 07/25/2021 Date of Last Pap Smear completed Lala Walden [place] - [facility] 09/20/2021 16:17:35 Imaging Results None [...] 0 175.26 cm 97.8 [degF] 41.8 kg/m2 401446. 36 g 98 % 98 % 97 [...] Updated DateTime 0 175.26 cm 41.8 kg/m2 781577. 64 g 98 % 98 % 65 /min 97.6 [degF] 104 mm[Hg] 68 mm[Hg] Oralia Grande MA [facility] 0 15:29:25 Date Recorded Body height Body temperature Oxygen saturation Oxygen saturation in Arterial blood by Pulse oximetry Heart rate Body mass index (BMI) Body weight Systolic blood pressure Diastolic blood pressure Provider Name and Address Organization Details Last Updated DateTime 0 175.26 cm 96.8 [degF] 98 % 98 % 66 /min 41 kg/m2 131294. 19 g 118 mm[Hg] 76 mm[Hg] Lala Ontiveros MA [facility] 0 11:33:28 Date Recorded Body temperature Oxygen saturation Oxygen saturation in Arterial blood by Pulse oximetry Heart rate Body weight Systolic blood pressure Diastolic blood pressure Provider Name and Address Organization Details Last Updated DateTime 2 97.6 [degF] 98 % 98 % 79 /min 700682. 52 g 114 mm[Hg] 76 mm[Hg] Lala gallardo MA [facility] 2 16:22:10 Date Recorded Body weight Body mass index (BMI) Body height Oxygen saturation Oxygen saturation in Arterial blood by Pulse oximetry Heart rate Systolic blood pressure Diastolic blood pressure Provider Name and Address Organization Details Last Updated DateTime 4 473423. 86 g 41.3 kg/m2 175.26 cm 99 % 99 % 68 /min 126 mm[Hg] 68 mm[Hg] Dayana Chandler MA [facility] 4 15:39:40 Social History Question Answer Notes LastModified by Organizat ion Details LastModified Time Tobacco Smoking Status Never Smoker Oralia Grande MA null, [facility] 01/01/2020 10:51:38 What Is Your Level Of [...] Anxious, Or Unable To Sleep At Night)? [id number] Information not available 09/20/2021 On What Date [...] or Bladder Problems N Thyroid Problems N GI Problems N Depression N COPD N Blood Clots N Skin Problems N Eating Disorder N Anemia N Heart Attack (IA) N Anxiety Disorder N Diabetes N Muscle, Joint, or Bone Problems N Seizures/Epilepsy N Acid Reflux (GERD) N Cancer N Stroke N Asthma N Allergies N ADHD N Substance Abuse N High Cholesterol N Hepatitis N Liver Disease N Schizophrenia N Headaches N Osteoporosis N Heart Failure N Gynecological History Statement/Question Response Date of [...] SNOMED-CT Code Diagnosis ICD10 Code Diagnosis Note [id number] JACINTO Avila [facility] [address] [place] [address] 01/01/2020 10:44:58 01/04/2020 08:22:05 Adult health examination 526903279 Z00.00 [id number] JACINTO Avila [facility] [address] [place] [address] 01/08/2020 11:18:15 01/08/2020 12:48:01 Morbid obesity 474729384 E66.01 Body mass index 30+ - obesity 804363485 Z68.41 Chronic depression 63972 0009 F34.1 [id number] JACINTO Avila [address] [place] [address] 02/03/2020 15:24:28 02/04/2020 06:45:23 Depressive disorder 58755892 F32.0 [id number] [facility] [address] [place] [address] 05/05/2020 11:29:05 05/06/2020 12:35:42 Chronic depression 164914321 F34.1 Body mass index 40+ - severely obese 806586761 Z68.41 [id number] Jonathan Ralph PA-C [facility] [address] [place] [address] 09/20/2021 15:44:16 09/20/2021 16:50:52 Right side sciatica 9040200737 19888 M54.31 [id number] Jonathan Ralph PA-C [facility] [address] [place] [address] 01/22/2024 15:15:50 01/24/2024 14:13:20 Adult health examination 090868054 Z00.00 Overweight 816365822 E66 .3 Health Concerns Section Related Observation LastModified by Organization Detai ls LastModified Time None Recorded Concern Status LastModified by Organization Details LastModified Time None Recorded Advance Directives Directive None Recorded Payers Encounter Date Sequence Insurance Name Policy Number Policy Downing Covered Member ID Downing Member ID Guarantor Name 01/08/[address] [facility] Haley Garrett [id number] Haleysaurabh Arce 01/08/2020 1 [place] [facility] Haley Tucker [id number] Haleysaurabh Arce 02/03/[address] [place] [facility] Haley Tucker [id number] Haleysaurabh Arce 02/03/2020 2 [facility] (MEDICAID HMO) [id number] Haley Tucker [id number] Haleysaurabh Arce 05/05/[address] [place] [facility] Haley Garrett [id number] Haleysaurabh Arce 05/05/2020 [address] [facility] (MEDICAID HMO) [id number] Haley Tucker [id number] Haley Arce 09/20/2021 [address] [facility] (MEDICAID HMO) [id number] Haley Tucker [id number] Haleysaurabh Arce 09/20/2021 1 [employer] Erwin Arce [id number] Haley Arce 01/22/2024 1 [employer]PP[employer] Erwin Arce [id number] Haley Arce Notes Date Note Type Note Provider Name and Address Organization Details Recorded Time 01/08/2020 text/html needs lab work...used to take meds a long time ago for depression...wants to return to an anti depressant Jonathan Ralph PA-C Attn: Accounting,[address] [facility], [place], [address], [facility] 01/08/2020 12:00:45 02/03/2020 text/html follow up on wellbutrin...doing well..no side effects.. Jonathan Ralph PA-C Attn: Accounting,[address] [facility], [place], [address], [facility] 02/03/2020 15:43:57 05/05/2020 text/html [...] y/o). Jonathan Ralph PA-C Attn: Accounting,[address] [facility], [place], [address], [facility] 05/05/2020 11:59:02 09/20/2021 text/html [...] a spinal and neurosurgeon, Dr. Suárez at [facility] in [place], on October 17, but this specialist needs an MRI done before she goes to see him. She denies numbness, changes in bowel or bladder habits, n/v/fever. Jonathan Ralph PA-C Attn: Accounting[address] [place], [address], [facility] 09/20/2021 16:48:14 01/22/2024 text/html well adult...no complaints Jonathan Ralph PA-C Attn: Accounting[address] [place], [address], [facility] 01/22/2024 16:04:12 OBGyn Episode No OBEpisode recorded.
--- OUTSIDE RECORDS SUMMARY | 2024-09-24 17:34 | XMS_ITS | Referral Summary ---
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
[2024-09-24 17:48] VITALS: BP 118/67; PULSE 62; RESP 16; TEMP 36.2; O2SAT 99
--- NOTE | 2024-09-24 17:50 | ED_ITS ---
HPI - Extremity Injury (Lower) General Chief Complaint: Extremity Injury, Lower Stated Complaint: Fall Injury/Left Foot Time Seen by Provider: 09/24/24 18:14 Source: patient, RN notes reviewed and old records reviewed Mode of arrival: ambulatory Limitations: no limitations History of Present Illness HPI Narrative: 29-year-old female presents to the [facility] with complaints of Pain, swelling to the lateral aspect left foot. Related Data Allergies Allergy/AdvReac Type Severity Reaction Status Date / Time No Known Allergies Allergy Verified 09/24/24 17:51 Review of Systems 2 Review of Systems: All systems reviewed & are unremarkable except as noted in HPI and below Constitutional: Constitutional: Reports no additional constitutional complaints ENT: Reports system reviewed and no additional complaints, except as documented Cardiovascular: Cardiovascular: Reports no additional cardiovascular complaints, Denies chest pain and Denies dyspnea Respiratory: Respiratory: Reports no additional respiratory complaints, Denies chest congestion, Denies cough and Denies dyspnea Musculoskeletal: Musculoskeletal: Reports as per HPI Integumentary/Breasts: Skin/Breast: Reports system reviewed and no additional complaints, except as docu PMFSH Past Medical History Medical History PONV (postoperative nausea and vomiting) Depression Anxiety Surgical History Surgical History History of removal of ovarian cyst Family History Family History Father ALS (amyotrophic lateral sclerosis) Hypertension Heart disease Grandparent Malignant neoplasm of prostate Heart disease Hypertension Grandparent Leukemia Social History Social History Smoking status: Never smoker Alcohol intake: current Drinks per week: 4 Alcohol use details: WHEN NOT Substance use: never Substance use type: does not use Do You Feel Safe in your Home?: Yes Lack of Transportation: No Lack of Food: Never True Current Housing: I Have Housing Concerned About Future Housing: No Difficulty Paying Gas/Electric Bills: No Difficulty Paying for Meds: No Currently Unemployed: No Education: High School Diploma/GED Difficulty w/ Childcare or Family Care: No Living arrangements: with family Additional occupation/education comments: Employed [employer] Gender identity (if verbalized by the patient): Female Spiritual care concerns: No Agree to blood products: Yes Comments At the time of my signature, I reviewed and agree with the nursing past medical, surgical, social, and family history. There is no relevant family history pertinent to the patient complaint. Exam 2 Const: General: cooperative, healthy appearing, comfortable, no acute distress, well developed, alert and well nourished Nutritional Appearance: w ell nourished Orientation/consciousness: patient oriented x3 Limitations: no limitations HENMT: Head: normal to inspection Eyes: General: appearance normal, both eyes and all related structures A lignment and Position: alignment normal Neck: Neck: normal visual inspection, full ROM, no lymphadenopathy and no meningeal signs Chest: Chest palpation & inspection: normal inspection of the chest Resp: Effort & Inspection: normal respiratory effort and able to speak in complete sentences Cardio: Rate: regular rate Skin: General skin exam: normal color and no rashes or lesions noted Neuro: General: patient oriented x3, moves all extremities and no meningeal signs Cognition (Neuro): normal cognition Speech: normal speech Gait exam (Neuro): Normal gait present Extrem: General: normal to inspection, full ROM, capillary refill normal and normal gait Left lower extremity: foot Details: normal capillary refill, tenderness, toes with normal ROM and ecchymosis Ankle/foot/toe images: 1. pain, swelling tender to palpation Psych: Appearance: grossly normal and well kempt Mental Status: mental status grossly normal Speech and movement: Normal speech and movement present and Clear speech present Affect: normal affect Attitude: cooperative Course Course Level of Care: Express Care Visit Vital Signs Vital signs: Vital Signs Temperature 97.2 F L 09/24/24 17:48 Pulse Rate 62 09/24/24 17:48 Respiratory Rate 16 09/24/24 17:48 Blood Pressure 118/67 09/24/24 17:48 Pulse Oximetry 99 09/24/24 17:48 Oxygen Delivery Room Air 09/24/24 17:48 Temperature 97.2 F L 09/24/24 17:48 Pulse Rate 62 09/24/24 17:48 Respiratory Rate 16 09/24/24 17:48 Blood Pressure 118/67 09/24/24 17:48 Pulse Oximetry 99 09/24/24 17:48 Oxygen Delivery Room Air 09/24/24 17:48 Reviewed MDM - Extremity Injury (Lower) MDM Narrative Medical decision making narrative: Patient sitting in exam room me. Nontoxic, vitals stable. Patient in no acute distress. Patient presents with pain to the left lateral foot. X-ray shows fracture to the 5th metacarpal tarsal. Splint placed, crutches given. Patient is appropriate for outpatient treatment and follow-up Discharge instructions reviewed with patient, as well as provided in writing per nursing staff. The instructions also include specific and strict return/GO TO THE ER as well as f/u information. All questions have been answered, and the patient deny any further questions with discharge and discharge plan. Some parts of this dictation were generated by voice recognition software and may contain typographical and/or grammatical inaccuracies. Differential Diagnosis Differential diagnosis: Likely ankle sprain and strain and other (Foot sprain, fracture, contusion) Imaging Data Radiologist's impression: EXAM: XR foot LT min 3V DATE: 09/24/2024 18:00 HISTORY: pain after fall . COMPARISON: None available. FINDINGS: Normal mineralization. Transverse, extra-articular fracture at the base of fifth metatarsal, with 2 mm distraction. No lytic or blastic lesion. Joint spaces are maintained. Mild hallux valgus. Os articularis. Os peroneus. No erosion or periosteal change. Soft tissues within normal limits. IMPRESSION: Mildly distracted fifth metatarsal base avulsion fracture. Critical Care Time Critical Care Time Critical Care Time: No Discharge Plan Discharge Clinical Impression: Closed fracture of fifth metatarsal bone of left foot Patient Disposition: Home, Self-Care Condition: Stable Instructions: Crutch Instructions (ED), Foot Fracture in Adults (ED), Splint Care (ED) Additional Instructions: Rest, ice and elevate every 2-3 hours for 15-20 minutes while awake. Call Ortho or Podiatry in the morning for close follow-up appointment Use the crutches and wear the splint until you are cleared by Ortho or Podiatry Follow-up with primary care provider New or worsening symptoms go directly to the emergency room Patient Language: Trinidadian Prescriptions: New ibuprofen 600 mg tablet 600 mg PO TID PRN (Reason: fever or pain) Qty: 30 0RF Follow-up/Referrals: Kvng Santizo MD [Physician] - Edison Suarez Jr., DPM [Physician] - Herb Jacobson DPM [Physician] - Jocelyn Carrera APRN [Primary Care Provider] - 2 Weeks ([facility] care follow up ) Stand Alone Forms: Work/School Release IP Time of Disposition: 18:31
== END 2024-09-24 19:05 | disposition home or self-care (01) ==
PROVIDERS: Emergency Provider Nurse Practitioner; PCP Nurse Practitioner Adult Health
DX: S92.352A Displaced fracture of fifth metatarsal bone, left foot, initial encounter for closed fracture (principal); X58.XXXA Exposure to other specified factors, initial encounter
CPT/HCPCS: 29515; 73630; 99213; 99214; G0463

== ENCOUNTER 2024-11-28 08:45 | Emergency (ER) | payer OTHER, SELFPAY ==
--- OUTSIDE RECORDS SUMMARY | 2024-11-28 08:47 | XMS_ITS | Referral Summary ---
Author Organization [facility] [address] Address [address] [place] [address] Care Team Providers Care Machine Accountant Name Role Phone Jam Ralph Primary Care Provider [phone] Encounters Date Type Department Care Team Description 11/20/2024 3:50 PM CDT Ancillary Procedure [facility] Imaging at [address] [phone] Left foot pain 11/20/2024 3:45 PM CDT Office Visit [facility] Sports Medicine and Primary Care at [address] [phone] Juan Meek DO Closed nondisplaced fracture of fifth metatarsal bone of left foot with routine healing, subsequent encounter (Primary Dx); Left foot pain 10/27/2024 Telephone [facility] Sports Medicine and Primary Care at [address] [phone] Juan Meek DO Work Comp 10/27/2024 9:05 AM CDT Ancillary Procedure [facility] Imaging at [address] [phone] Left foot pain; Closed nondisplaced fracture of fifth metatarsal bone of left foot with routine healing, subsequent encounter 10/27/2024 9:00 AM CDT Office Visit [facility] Sports Medicine and Primary Care at [address] [phone] Juan Meek DO Closed nondisplaced fracture of fifth metatarsal bone of left foot with routine healing, subsequent encounter (Primary Dx); Left foot pain 10/09/2024 9:35 AM CDT Ancillary Procedure [facility] Imaging at [address] [phone] Left foot pain; Closed nondisplaced fracture of fifth metatarsal bone of left foot, initial encounter 10/09/2024 10:30 AM CDT Office Visit [facility] Sports Medicine and Primary Care at [address] [place] [phone] Juan Meek DO Closed nondisplaced fracture of fifth metatarsal bone of left foot with routine healing, subsequent encounter (Primary Dx); Left foot pain 09/28/2024 8:30 AM CDT Office Visit [facility] Sports Medicine and Primary Care at [address] [place] [phone] Juan Meek DO Left foot pain (Primary Dx); Closed nondisplaced fracture of fifth metatarsal bone of left foot, initial encounter 09/25/2024 Telephone [facility] Orthopedics and Sports Medicine [address] [phone] Dino Mccoy MD from Last 3 Months Allergies No known active allergies Medications JENCYCLA 0.35 mg tabletIndications : Contraception 0 8 Active ketorolac (TORADOL) 10 mg tablet Take 1 tablet (10 mg total) by mouth every 6 (six) hours as needed for pain Do not take NSAIDs in addition to this medication. Do not take on an empty stomach. 20 tablet 2 Active Additional Information Patient not taking.Reported on 11/20/2024 sertraline (ZOLOFT) 50 mg tablet Take 1 tablet (50 mg total) by mouth daily Active ibuprofen (ADVIL,MOTRIN) 600 mg tablet Take 1 tablet (600 mg total) by mouth every 6 (six) hours as needed 5 Active Active Problems Problem Noted Date Diagnosed Date [...] Date Smoking Tobacco: Never Smokeless Tobacco: Never Tobacco Cessation:Counseling Given: Not Answered Alcohol Use Standard Drinks/Week Comments Yes 0 (1 standard drink = 0.6 oz pur e alcohol) AUDIT-C Answer Date Recorded Q1: How often do you have a drink containing alcohol? Never 10/09/2024 Q2: How many drinks containi ng alcohol do you have on a typical day when you are drinking? Patient does not drink Q3: How often do you have si x or more drinks on one occasion? Never 10/09/2024 Comments No Sex and Gender Information Value Date Recorded Sex Assigned at Not on file Legal Sex Female 2:07 AM [employer] Gender Identity Not on file Sexual Orientation Not on file Last Filed Vital Signs Vital Sign Reading Time Taken Comments Blood Pressure 130/83 11/20/2024 3:53 PM CDT Pulse 60 11/20/2024 3:53 PM CDT Temperature 36.5 C (97.7 F) 04/13/2022 5:23 PM CDT Respiratory Rate 18 11/20/2024 3:53 PM CDT Oxygen Saturation 98% 04/13/2022 5:23 PM CDT Inhaled Oxygen Concentration - - Weight 125.6 kg (277 lb) 11/20/2024 3:53 PM CDT Height 177.8 cm (5' 10) 11/20/2024 3:53 PM CDT Body Mass Index 39.75 11/20/2024 3:53 PM CDT Plan of Treatment Not on file Procedures Procedure Name Priority Date/Time Associated Diagnosis Comments XR FOOT LEFT 3 OR MORE VIEWS Schedule Routine, Read Routine (OP Routine) 11/20/2024 3:49 PM CDT Left foot pain XR FOOT LEFT 3 OR MORE VIEWS Schedule Routine, Read Routine (OP Routine) 10/27/2024 9:05 AM CDT Left foot pain Closed nondisplaced fracture of fifth metatarsal bone of left foot with routine healing, subsequent encounter XR FOOT LEFT 3 OR MORE VIEWS Schedule Routine, Read Routine (OP Routine) 10/09/2024 9:36 AM CDT Left foot pain Closed nondisplaced fracture of fifth metatarsal bone of left foot, initial encounter from Last 3 Months Results * XR Foot Left 3 or More Views (11/20/2024 3:49 PM CDT) Anatomical Region Laterality Modality Lower Extremities, Foot Left Digital Radiography 11/21/2024 11:2 8 AM CDT Narrative 11/21/2024 11:29 AM CDT EXAM DESCRIPTION: XR FOOT LEFT 3 OR MORE VIEWS REASON FOR STUDY: pain Follow up 10.09.24 fifth metatarsal fracture follow up TECHNIQUE: 3 radiographic view(s) of the left foot . COMPARISON: 10/27/2024 FINDINGS: There is redemonstration of the intra-articular fracture involving the lateral base of the left 5th metatarsal with grossly stable alignment. No new fractures or dislocations are identified. There is hallux valgus deformity. There is grossly stable mild soft tissue swelling. IMPRESSION: Grossly stable alignment of previously visualized intra-articular fracture involving the lateral base of the left 5th metatarsal. THIS IS AN ELECTRONICALLY VERIFIED FINAL REPORT 11/21/2024 11:29 AM - Electronically signed by Kevin Joseph D.O. PS T: Report ID: [id number] Reading Location: [id number] Procedure Note Kevin Joseph DO - 11/21/2024 EXAM DESCRIPTION: XR FOOT LEFT 3 OR MORE VIEWS REASON FOR STUDY: pain Follow up 4 fifth metatarsal fracture follow up TECHNIQUE: 3 radiographic view(s) of the left foot . COMPARISON: 10/27/2024 FINDINGS: There is redemonstration of the intra-articular fractureinvolving the lateral base of the left 5th metatarsal with grossly stable alignment.No new fractures or dislocations are identified. There is hallux valgus deformity. There is grossly stable mild soft tissue swelling. IMPRESSION: Grossly stable alignment of previously visualized intra-articularfracture involving the lateral base of the left 5th metatarsal. THIS IS AN ELECTRONICALLY VERIFIED FINAL REPORT 11/21/2024 11:29 AM - Electronically signed by Kevin Joseph D.O. PS T: Report ID: [id number] Reading Location: [id number] Juan Meek DO IMG XR PROCEDURES Leeann l Result * XR Foot Left 3 or More Views (10/27/2024 9:05 AM CDT) Anatomical Region Laterality Modality Lower Extremities, Foot Left Digital Radiography 10/27/2024 4:13 PM CDT Narrative 10/27/2024 4:14 PM CDT EXAM DESCRIPTION: XR FOOT LEFT 3 OR MORE VIEWS REASON FOR STUDY: pain Fx f/u x 2.5 weeks FINDINGS: Three views of the left foot are submitted for interpretation and compared to prior 10/09/2024. Unchanged mildly displaced intra-articular 5th metatarsal base fracture. Hallux valgus on this nonweightbearing examination of the left foot. Joint spaces are normal. IMPRESSION: Unchanged mildly displaced intra-articular 5th metatarsal base fracture. THIS IS AN ELECTRONICALLY VERIFIED FINAL REPORT 10/27/2024 4:14 PM - Electronically signed by Ashok Garcia M.D. T: Report ID: [id number] Reading Location: [id number] Procedure Note Ashok Garcia MD - 10/27/2024 EXAM DESCRIPTION: XR FOOT LEFT 3 OR MORE VIEWS REASON FOR STUDY: pain Fx f/u x 2.5 weeks FINDINGS: Three views of the left foot are submitted for interpretationand compared to prior 10/09/2024. Unchanged mildly displaced intra-articular 5th metatarsal base fracture. Hallux valgus on this nonweightbearing examination of the left foot.Joint spaces are normal. IMPRESSION: Unchanged mildly displaced intra-articular 5th metatarsal base fracture. THIS IS AN ELECTRONICALLY VERIFIED FINAL REPORT 10/27/2024 4:14 PM - Electronically signed by Ashok Garcia M.D. T: Report ID: [id number] Reading Location: [id number] Juan Meek DO IMG XR PROCEDURES Leeann l Result * XR Foot Left 3 or More Views (10/09/2024 9:36 AM CDT) Anatomical Region Laterality Modality Lower Extremities, Foot Left Digital Radiography 10/10/2024 2:10 AM CDT Narrative 10/10/2024 2:11 AM CDT EXAM DESCRIPTION: XR FOOT LEFT 3 OR MORE VIEWS REASON FOR STUDY: Left foot pain Fx f/u x 2 weeks TECHNIQUE: 3 radiographic view(s) of the left foot . COMPARISON: None FINDINGS: Three views of the left foot demonstrate mild hallux valgus and metatarsus varus. There is a healing oblique fracture through the lateral base of the 5th metatarsal. There is lucency at the fracture site, but some callus formation is seen about the fracture. The bones are in anatomic alignment. Mild soft tissue swelling about the left foot. No radiopaque foreign body. IMPRESSION: No acute osseous abnormality. THIS IS AN ELECTRONICALLY VERIFIED FINAL REPORT 10/10/2024 2:11 AM - Electronically signed by Michele Santos M.D. KT T: Report ID: [id number] Reading Location: [id number] Procedure Note Michele Santos MD - 10/10/2024 EXAM DESCRIPTION: XR FOOT LEFT 3 OR MORE VIEWS REASON FOR STUDY: Left foot pain Fx f/u x 2 weeks TECHNIQUE: 3 radiographic view(s) of the left foot . COMPARISON: None FINDINGS: Three views of the left foot demonstrate mild hallux valgus and metatarsus varus. There is a healing oblique fracture through the lateral base of the 5th metatarsal. There is lucency at the fracture site, butsome callus formation is seen about the fracture. The bones are in anatomic alignment. Mild soft tissue swelling about the left foot. No radiopaque foreign body. IMPRESSION: No acute osseous abnormality. THIS IS AN ELECTRONICALLY VERIFIED FINAL REPORT 10/10/2024 2:11 AM - Electronically signed by Michele Santos M.D. KT T: Report ID: [id number] Reading Location: [id number] Juan Meek DO IMG XR PROCEDURES Leeann l Result from Last 3 Months Insurance [facility] CHOICE PLUS [employer] COMPENSATION GENERIC Care Teams Machine Accountant Relationship Specialty Start Date End Date Jam Ralph PA [address] [place] [address] PCP - General 10/11/21
--- OUTSIDE RECORDS SUMMARY | 2024-11-28 08:47 | XMS_ITS | Data Portability ---
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 Plan of Treatment Reminders Order Date Submit Date Provider Last Modified By Organization Details Last Modified Time Details Appointments None record ed. Lab CMP, serum or plasma 2019 020 [facility], [address] [place] [address], [facility] [address], [place], [address], 0 06:26:28 CBC 2019 020 [facility], [address] [place] [address], [address], [place], [address], 0 06:26:29 TSH, serum or plasma 2019 020 [facility], [address] [place] [address], [address], [place], [address], 0 06:26:30 lipid panel, serum 2019 020 [facility], [address] [place] [address], [address], [place], [address], 0 06:26:29 Referral None record ed. Procedures None record ed. Surgeries None record ed. Imaging MRI, lumbar spine, w/o contra st - xray negati ve...c luigi not effect horacio [address] [facility] [address], [place], [address], 2 09:46:11 Medication Orders buprop ion HCl SR 150 mg tablet ,12 hr sustai ash-re lease 2019 020 j[facility]lene [facility], [address] [place] [address], [id number], 2 16:15:51 buprop ion HCl SR 150 mg tablet ,12 hr sustai ash-re lease 2019 020 [facility]lene [facility], [address] [place] [address], [id number], 2 16:15:51 Patient TargetsNo targets recorded. Patient Instructions Encounter Date Encounter Id Patient Instructions Last Modified By Organization Details Last Modified Time 01/08/2020 [id number] When You Want to Lose Weight: Care Instructions jnanney Not available 01/08/2020 11:54:35 body mass index: care instructions jnanney Not available 01/08/2020 11:55:36 learning about healthy weight jnanney Not available 01/08/2020 11:55:36 02/03/2020 [id number] learning about mood disorders jnanney Not available 02/03/2020 15:43:18 follow in 3 months jnanney Not available 02/03/2020 15:43:35 05/05/2020 [id number] body mass index: care instructions jnanney Not available 05/05/2020 11:57:29 learning about healthy weight jnanney Not available 05/05/2020 11:57:29 refuses flu shot jnanney Not available 05/05/2020 11:58:26 01/22/2024 [id number] A healthy lifestyle: care instructions jnanney Not available 01/22/2024 16:02:54 Reason for Referral None Reported. Results Created Date Observation Date Name Description Value Unit Range Abnormal Flag Note LastModifiedBy Organization Detail LastModifiedTime 01/01/2001/04/2020 drug scree n, urine amphetamines , urine Negati ve NG/mL cutoff =1000 Amphe tamin e test inclu betzy Amphe tamin e and Metha mphet amine . Not Available [facility] ([facility]) [address] [place], [address], 01/04/2020 15:06:55 01/01/20 20 01/04/2020 drug scree n, urine barbiturate Negati ve NG/mL cutoff =300 Not Available [facility] ([facility]) [address] [place], [address], 01/04/2020 15:06:55 01/01/20 20 01/04/2020 drug scree n, urine benzodiazepi ingrid Negati ve NG/mL cutoff =300 Not Available [facility] ([facility]) [address] [place], [address], 01/04/2020 15:06:55 01/01/20 20 01/04/2020 drug scree n, urine cannabinoid Negati ve NG/mL cutoff =50 Not Available [facility] ([facility]) [address] [place], [address], 01/04/2020 15:06:55 01/01/20 20 01/04/2020 drug scree n, urine cocaine (metab.) Negati ve NG/mL cutoff =300 Not Available [facility] ([facility]) [address] [place], [address], 01/04/2020 15:06:55 01/01/20 20 01/04/2020 drug scree n, urine opiates Negati ve NG/mL cutoff =300 Opiat e test inclu betzy Codei ne and Morph ine only. Not Available [facility] ([facility]) [address] [place], [address], 01/04/2020 15:06:55 01/01/20 20 01/04/2020 drug scree n, urine phencyclidin e Negati ve NG/mL cutoff =25 Not Available [facility] ([facility]) [address] [place], [address], 01/04/2020 15:06:55 01/01/20 20 01/04/2020 drug scree n, urine methadone screen, urine Negati ve NG/mL cutoff =300 Not Available [facility] ([facility]) [address] [place], [address], 01/04/2020 15:06:55 01/01/20 20 01/04/2020 drug scree n, urine propoxyphene , urine Negati ve NG/mL cutoff =300 Not Available [facility] ([facility]) [address] [place], [address], 01/04/2020 15:06:55 01/08/20 20 01/09/2020 CMP, serum or plasm a glucose 96 mg/dL 65-99 Not Available [facility] ([facility]) [address] [place], [address], 01/13/2020 06:26:28 01/08/20 20 01/09/2020 CMP, serum or plasm a BUN 11 mg/dL 6-20 Not Available [facility] ([facility]) [address] [place], [address], 01/13/2020 06:26:28 01/08/20 20 01/09/2020 CMP, serum or plasm a creatinine 0.63 mg/dL 0.57-1 .00 Not Available [facility] ([facility]) [address] [place], [address], 01/13/2020 06:26:28 01/08/20 20 01/09/2020 CMP, serum or plasm a eGFR if nonafricn AM 125 mL/mi n/1.7 3 >59 Not Available [facility] ([facility]) [address] [place], [address], 01/13/2020 06:26:28 01/08/20 20 01/09/2020 CMP, serum or plasm a eGFR if africn AM 144 mL/mi n/1.7 3 >59 Not Available [facility] ([facility]) [address] [place], [address], 01/13/2020 06:26:28 01/08/20 20 01/09/2020 CMP, serum or plasm a BUN/creatini ne ratio 17 9-23 Not Available [facility]) [address] [place], [address], 01/13/2020 06:26:28 01/08/20 20 01/09/2020 CMP, serum or plasm a sodium 138 mmol/ L 134-14 4 Not Available [facility] ([facility]) [address] [place], [address], 01/13/2020 06:26:28 01/08/2001/09/2020 CMP, serum or plasm a potassium 4.8 mmol/ L 3.5-5. 2 Not Available [facility] ([facility]) [address] [place], [address], 01/13/2020 06:26:28 01/08/2001/09/2020 CMP, serum or plasm a chloride 100 mmol/ L 96-106 Not Available [facility] ([facility]) [address] [place], [address], 01/13/2020 06:26:28 01/08/20 20 01/09/2020 CMP, serum or plasm a carbon dioxide, total 21 mmol/ L 20-29 Not Available [facility] ([facility]) [address] [place], [address], 01/13/2020 06:26:28 01/08/2001/09/2020 CMP, serum or plasm a calcium 9.5 mg/dL 8.7-10 .2 Not Available [facility] ([facility]) [address] [place], [address], 01/13/2020 06:26:28 01/08/2001/09/2020 CMP, serum or plasm a protein, total 7.1 g/dL 6.0-8. 5 Not Available [facility] ([facility]) [address] [place], [address], 01/13/2020 06:26:28 01/08/2001/09/2020 CMP, serum or plasm a albumin 4.4 g/dL 3.9-5. 0 Not Available [facility] ([facility]) [address] [place], [address], 01/13/2020 06:26:28 01/08/2001/09/2020 CMP, serum or plasm a globulin, total 2.7 g/dL 1.5-4. 5 Not Available [facility] ([facility]) [address] [place], [address], 01/13/2020 06:26:28 01/08/2001/09/2020 CMP, serum or plasm a A/G ratio 1.6 1.2-2. 2 Not Available [facility] ([facility]) [address] [place], [address], 01/13/2020 06:26:28 01/08/20 20 01/09/2020 CMP, serum or plasm a bilirubin, total 0.3 mg/dL 0.0-1. 2 Not Available [facility] ([facility]) [address] [place], [address], 01/13/2020 06:26:28 01/08/2001/09/2020 CMP, serum or plasm a alkaline phosphatase 94 IU/L 39-117 Not Available [facility]) [address] [place], [address], 01/13/2020 06:26:28 01/08/2001/09/2020 CMP, serum or plasm a AST (SGOT) 16 IU/L 0-40 Not Available [facility] ([facility]) [address] [place], [address], 01/13/2020 06:26:28 01/08/20 20 01/09/2020 CMP, serum or plasm a ALT (SGPT) 17 IU/L 0-32 Not Available [facility] ([facility]) [address] [place], [address], 01/13/2020 06:26:28 01/08/2001/09/2020 CBC WBC 8.1 x10e3 /uL 3.4-10 .8 Not Available [facility] ([facility]) [address] [place], [address], 01/13/2020 06:26:29 01/08/2001/09/2020 CBC RBC 5.22 x10e6 /uL 3.77-5 .28 Not Available [facility] ([facility]) [address] [facility] [place], [address], 01/13/2020 06:26:29 01/08/2001/09/2020 CBC hemoglobin 15.1 g/dL 11.1-1 5.9 Not Available [facility] ([facility]) [address] [place], [address], 01/13/2020 06:26:29 01/08/2001/09/2020 CBC hematocrit 45.4 % 34.0-4 6.6 Not Available [facility] ([facility]) [address] [facility] [place], [address], 01/13/2020 06:26:29 01/08/2001/09/2020 CBC MCV 87 fL 79-97 Not Available [facility] ([facility]) [address] [place], [address], 01/13/2020 06:26:29 01/08/2001/09/2020 CBC MCH 28.9 pg 26.6-3 3.0 Not Available [facility] ([facility]) [address] [facility] [place], [address], 01/13/2020 06:26:29 01/08/20 20 01/09/2020 CBC MCHC 33.3 g/dL 31.5-3 5.7 Not Available [facility] ([facility]) [address] [facility], [place], [address], 01/13/2020 06:26:29 01/08/20 20 01/09/2020 CBC RDW 13.3 % 11.7-1 5.4 Not Available [facility] ([facility]) [address] [facility], [place], [address], 01/13/2020 06:26:29 01/08/2001/09/2020 CBC platelets 282 x10e3 /uL 150-45 0 Not Available [facility] ([facility]) [address] [facility], [place], [address], 01/13/2020 06:26:29 01/08/20 20 01/09/2020 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 Not Available [facility] ([facility]) [address] [facility], [place], [address], 01/13/2020 06:26:29 01/08/20 20 01/09/2020 lipid panel , serum cholesterol, total 184 mg/dL 100-19 9 Not Available [facility] ([facility]) [address] [facility], [place], [address], 01/13/2020 06:26:29 01/08/20 20 01/09/2020 lipid panel , serum triglyceride s 117 mg/dL 0-149 Not Available [facility]) [address] [facility], [place], [address], 01/13/2020 06:26:29 01/08/20 20 01/09/2020 lipid panel , serum HDL cholesterol 43 mg/dL >39 Not Available [facility]) [address] [facility], [place], [address], 01/13/2020 06:26:29 01/08/20 20 01/09/2020 lipid panel , serum VLDL cholesterol vicky 23 mg/dL 5-40 Not Available [facility] ([facility]) [address] [place], [address], 01/13/2020 06:26:29 01/08/20 20 01/09/2020 lipid panel , serum LDL cholesterol calc 118 mg/dL 0-99 above high normal Not Available [facility] ([facility]) [address] [facility], [place], [address], 01/13/2020 06:26:29 01/08/2001/09/2020 lipid panel , serum 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 Not Available [facility] ([facility]) [address] [facility], [place], [address], 01/13/2020 06:26:30 01/08/2001/09/2020 cardi ovasc ular asses sment panel , serum pdf . Not Available [facility] ([facility]) [address] [facility], [place], [address], 01/13/2020 06:26:30 Result Notes None recorded. Problems No Known Problems Procedures Surgical History Date Name Laterality Status Provider Name and Address Organization Details Recorded Time 07/25/2021 Date of Last Pap Smear completed Lala Walden MA [facility] 09/20/2021 16:17:35 Imaging Results None recorded. [...] No t Available Vitals Date Recorded Body temperature Oxygen saturation Oxygen saturation in Arterial blood by Pulse oximetry Heart rate Body weight Systolic blood pressure Diastolic blood pressure Provider Name and Address Organization Details Last Updated DateTime 2 97.6 [degF] 98 % 98 % 79 /min 258383. 52 g 114 mm[Hg] 76 mm[Hg] Lala gallardo [place] [facility] 2 16:22:10 Date Recorded Body height Body temperature Body mass index (BMI) Body weight Oxygen saturation Oxygen saturation in Arterial blood by Pulse oximetry Heart rate Systolic blood pressure Diastolic blood pressure Provider Name and Address Organization Details Last Updated DateTime 0 175.26 cm 97.8 [degF] 41.8 kg/m2 518339. 36 g 98 % 98 % 97 /min 122 mm[Hg] 78 mm[Hg] Sravanthi Raines [facility] 0 11:26:23 Date Recorded Body weight Body mass index (BMI) Body height Oxygen saturation Oxygen saturation in Arterial blood by Pulse oximetry Heart rate Systolic blood pressure Diastolic blood pressure Provider Name and Address Organization Details Last Updated DateTime 4 246410. 86 g 41.3 kg/m2 175.26 cm 99 % 99 % 68 /min 126 mm[Hg] 68 mm[Hg] Dayana Chandler MA [facility] 4 15:39:40 Date Recorded Body height Body mass index (BMI) Body weight Oxygen saturation Oxygen saturation in Arterial blood by Pulse oximetry Heart rate Body temperature Systolic blood pressure Diastolic blood pressure Provider Name and Address Organization Details Last Updated DateTime 0 175.26 cm 41.8 kg/m2 552059. 64 g 98 % 98 % 65 /min 97.6 [degF] 104 mm[Hg] 68 mm[Hg] Oralia Grande MA [facility] 0 15:29:25 Date Recorded Body height Body temperature Oxygen saturation Oxygen saturation in Arterial blood by Pulse oximetry Heart rate Body mass index (BMI) Body weight Systolic blood pressure Diastolic blood pressure Provider Name and Address Organization Details Last Updated DateTime 0 175.26 cm 96.8 [degF] 98 % 98 % 66 /min 41 kg/m2 084591. 19 g 118 mm[Hg] 76 mm[Hg] Lala Ontiveros MA [facility] 0 11:33:28 Social History Question Answer Notes LastModified by Organizat ion Details LastModified Time Tobacco Smoking Status Never Smoker Oralia Grande MA [facility] 01/01/2020 10:51:38 What Is Your Level Of Caffeine Consumption? [...] For COVID-19? No Information not available 09/20/2021 What Type Of Diet Are You Following? REGULAR Information not available 01/08/2020 Which Illicit Or Recreational Drugs Have You Used? None Information not available 01/08/2020 Education 12 Information no t available 01/08/2020 Live Alone Or With Others? With Others Information not available 01/08/2020 What Was The Date Of Your Most Recent Tobacco Screening? 01/22/2024 Information not available 01/22/2024 Do You Have Smoke And Carbon Monoxide Detectors In Your Home? Yes Information not available 09/20/2021 General Stress Level Medium Information not available 01/08/2020 On What Date Was Tobacco Cessation Counseling Provided? 01/22/2024 Information not available 01/22/2024 Sex: Female Functional Status Question Answer Note LastModified by Organizat ion Details LastModified Time What is your level of alcohol consumption? Occasional Information not available 01/08/2020 Do you or have you ever used smokeless tobacco? Never used smokeless tobacco Information not available 01/08/2020 Are you currently employed? No Information not available 01/08/2020 Are you able to care for yourself? Yes Information not available 01/08/2020 Do you or have you ever used e-cigarettes or vape? Never used electronic cigarettes Information not available 01/08/2020 Mental Status Question Answer Note LastModified by Organization D etails LastModified Time Do you feel stressed (tense, restless, nervous, or anxious, or unable to sleep at night)? [id number] Information not available 09/20/2021 Family History Relationship Description Onset Age of this Age Resolved Age Notes LastModified by Organization Details LastModified Time Father Hypertensive disorder [email or web address] Not available 03/2020 10:51:33 Medical History Condition Response Coronary Artery Disease N Other N Atrial Fibrillation N High Blood Pressure N Thyroid Problems N Kidney or Bladder Problems N GI Problems N Depression N COPD N Blood Clots N Eating Disorder N Skin Problems N Anemia N Heart Attack ([place]) N Diabetes N Anxiety Disorder N Muscle, Joint, or Bone Problems N [...] SNOMED-CT Code Diagnosis ICD10 Code Diagnosis Note [id number] JACINTO Avila [address] [place] [address] 01/01/2020 10:44:58 01/04/2020 08:22:05 Adult health examination 988934948 Z00.00 [id number] Jonathan Ralph PA-C [facility] [address] [place] [address] 01/08/2020 11:18:15 01/08/2020 12:48:01 Morbid obesity 126590022 E66.01 Body mass index 30+ - obesity 312051751 Z68.41 Chronic depression 70208 0009 F34.1 [id number] JACINTO Avila [facility] [address] [place] [address] 02/03/2020 15:24:28 02/04/2020 06:45:23 Depressive disorder 36618349 F32.0 [id number] MD Shakira Corona [facility] [address] [place] [address] 05/05/2020 11:29:05 05/06/2020 12:35:42 Chronic depression 292237255 F34.1 Body mass index 40+ - severely obese 937597022 Z68.41 [id number] Jani Lopez MD [facility] [address] [place] [address] 09/20/2021 15:44:16 09/20/2021 16:50:52 Right side sciatica 8980819429 56829 M54.31 [id number] Jani Lopez MD [facility] [address] [place] [address] 01/22/2024 15:15:50 01/24/2024 14:13:20 Adult health examination 890278668 Z00.00 Overweight 006277868 E66 .3 Health Concerns Section Related Observation LastModified by Organization Detai ls LastModified Time None Recorded Concern Status LastModified by Organization Details LastModified Time None Recorded Advance Directives Directive None Recorded Payers Encounter Date Sequence Insurance Name Policy Number Policy Downing Covered Member ID Downing Member ID Guarantor Name 01/08/2020 2 [facility] Haley Garrett [id number] Haleysaurabh Arce 01/08/2020 1 [place] [employer] [facility] Haley Tucker [id number] Haley Arce 02/03/2020 2 [facility] Haley Tucker [id number] Haleysaurabh Arce 02/03/2020 2 [facility] (MEDICAID HMO) [id number] Haley Tucker [id number] Haley Arce 05/05/2020 2 [facility] Haley Garrett [id number] Haleysaurabh Arce 05/05/2020 2 [facility] (MEDICAID HMO) [id number] Haley Tucker [id number] Haley Arce 09/20/2021 2 [facility] (MEDICAID HMO) [id number] Haley Tucker [id number] Haley Arce 09/20/2021 1 [facility]-[employer] - [employer]ALTH[employer] - CIGNA (PPO) Erwin Arce [id number] Haley Arce 01/22/2024 1 [facility] Erwin Arce [id number] Haley Claude Notes Date Note Type Note Provider Name and Address Organization Details Recorded Time 01/08/2020 text/html needs lab work...used to take meds a long time ago for depression...wants to return to an anti depressant Jontahan Ralph PA-C Attn: [address] [facility], [place], [address], [facility] 01/08/2020 12:00:45 02/03/2020 text/html follow up on wellbutrin...doing well..no side effects.. Jonathan Ralph PA-C Attn: [address] [facility], [place], [address], [facility] 02/03/2020 15:43:57 05/05/2020 text/html Haley parra is [...] y/o). Jonathan Ralph PA-C Attn: Accounting,[address] [facility], [place], [address], [facility] 05/05/2020 11:59:02 09/20/2021 text/html Haley parra is a 26 year old female who presents for back pain. She would like an MRI. She describes the pain as excruciating and it gets worse throughout the day and when she sits and drives her car. The pain begins in her lower back and radiates down her right leg. It feels tingly. She has been seeing a chiropractor who [...] a spinal and neurosurgeon, Dr. Suárez at [facility] in [place], on October 17, but this specialist needs an MRI done before she goes to see him. She denies numbness, changes in bowel or bladder habits, n/v/fever. Jonathan Ralph PA-C Attn: [address] [place], [address], [facility] [place] [place] 09/20/2021 16:48:14 01/22/2024 text/html well adult...no complaints Jonathan Ralph PA-C Attn: Accounting[address] [place], [address], [facility] [place] [place] 01/22/2024 16:04:12 OBGyn Episode No OBEpisode recorded.
--- OUTSIDE RECORDS SUMMARY | 2024-11-28 08:48 | XMS_ITS | Clinical Summary ---
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 Name Role Phone Jam Ralph Primary Care Provider [phone] Allergies No known active allergies Medications JENCYCLA [...] pain 12/30/2012 Overview (09/28/2016): Right knee pain Encounters Date Type Department Care Team Description 11/20/2024 3:50 PM CDT Ancillary Procedure [facility] Imaging at [address] [phone] Left foot pain 11/20/2024 3:45 PM CDT Office Visit [facility] Primary Care at [address] [address] Juan Meek, Closed nondisplaced fracture of fifth metatarsal bone of left foot with routine healing, subsequent encounter (Primary Dx); Left foot pain 10/27/2024 9:05 AM CDT Ancillary Procedure [facility] Imaging at [address] [id number] Left foot pain; Closed nondisplaced fracture of fifth metatarsal bone of left foot with routine healing, subsequent encounter 10/27/2024 9:00 AM CDT Office Visit [facility] Primary Care at [address] [address] Juan Meek DO Closed nondisplaced fracture of fifth metatarsal bone of left foot with routine healing, subsequent encounter (Primary Dx); Left foot pain 10/27/2024 Telephone [facility] Primary Care at [address] [address] Juan Meek DO Work Comp 10/09/2024 10:30 AM CDT Office Visit [facility] Primary Care at [address] [address] Juan Meek DO Closed nondisplaced fracture of fifth metatarsal bone of left foot with routine healing, subsequent encounter (Primary Dx); Left foot pain 10/09/2024 9:35 AM CDT Ancillary Procedure [facility] Imaging at [address] [phone] Left foot pain; Closed nondisplaced fracture of fifth metatarsal bone of left foot, initial encounter 09/28/2024 8:30 AM CDT Office Visit [facility] Sports Medicine and Primary Care at [address] [place] [address] Juan Meek DO Left foot pain (Primary Dx); Closed nondisplaced fracture of fifth metatarsal bone of left foot, initial encounter 09/25/2024 Telephone [facility] Orthopedics and Sports Medicine [address] [facility] [facility] [address], [place] [address] Dino Mccoy MD from Last 3 Months Immunizations Immunization Administration Dates Next Due DTaP [...] on file Legal Sex Female 2:07 AM [employer] Gender Identity Not on file Sexual Orientation [...] 11/20/2024 3:53 PM CDT Plan of Treatment Health Maintenance Due Date Last Done Comments Cervical Cancer Screening 1994 Depression Screening 1994 Hepatitis C Screening 1994 Varicella Vaccines (1 of 2 - 13+ 2-dose series) 2007 Regular Well Visit/Exam 18-64 02/22/2012 DTaP/Tdap/Td Vaccine (7 - Td or Tdap) 04/26/2019 04/26/2009, 03/20/2004, 02/08/1999, Additional history exists Influenza Vaccine (Season Ended) 2025 Hepatitis B Screening Completed 1994 , 1994, 1994 HPV Vaccines Completed 04/25/2010, 11/2009, 04/26/2009 Pneumococcal vaccine <65 Aged Out No longer eligible based on patient's age to complete this topic Procedures Procedure Name Priority Date/Time Associated Diagnosis [...] VIEWS REASON FOR STUDY: pain Follow up 4..25 fifth metatarsal fracture follow up TECHNIQUE: 3 [...] Kevin Joseph D.O. PS T: Report ID: [id number] Reading Location: [id number] Procedure Note Kevin Joseph DO - 11/21/2024 EXAM DESCRIPTION: XR FOOT LEFT 3 OR MORE VIEWS REASON FOR STUDY: pain Follow up 4.18.25 fifth metatarsal fracture follow up TECHNIQUE: 3 [...] 11:29 AM - Electronically signed by Kevin PHAN T: Report ID: [id number] Reading Location: [id number] Juan Meek DO IMG XR PROCEDURES Leeann [...] 4:14 PM - Electronically signed by Ashok RAMIREZ T: Report ID: [id number] Reading Location: [id number] Procedure Note Ashok Garcia MD - 10/27/2024 [...] - Electronically signed by Ashok Garcia M.D. TH T: Report ID: [id number] Reading Location: [id number] Juan Meek DO IMG XR PROCEDURES Leeann [...] Michele Santos M.D. KT T: Report ID: [id number] Reading Location: [id number] Procedure Note Michele Santos MD - 10/10/2024 [...] Michele Santos M.D. KT T: Report ID: [id number] Reading Location: [id number] Juan Meek DO IMG XR PROCEDURES Leeann l Result from Last 3 Months Insurance [facility] [employer] GENERIC Care Teams Auto Damage Adjuster Relationship Specialty Start Date End Date Jam Ralph PA [address] [place] [address] PCP - General 10/11/21
[2024-11-28 08:54] VITALS: BP 118/60; PULSE 77; RESP 16; TEMP 36.9; O2SAT 99
[2024-11-28 09:03] LABS: EDSTREPNEGPOS1 Negative (Negative)
--- NOTE | 2024-11-28 09:24 | ED_ITS ---
HPI - General Adult General Chief complaint: Upper Respiratory Infection Stated complaint: Sore Throat Source: patient Mode of arrival: ambulatory Limitations: no limitations History of Present Illness HPI narrative: This is a 29 year old female here today for evaluation of sore throat since yesterday. She denies any fever, chills, nausea, vomiting, diarrhea, cough or SOB. She has not taken any medication for her symptoms. She does not smoke. No recent sick contacts to her knowledge. Related Data Allergies Allergy/AdvReac Type Severity Reaction Status Date / Time No Known Allergies Allergy Verified 11/28/24 08:59 Review of Systems Review of Systems: CONSTITUTIONAL: Denies fever, chills, or sweats. EYES: Denies visual changes, redness, or discharge. ENT: Reports sore throat. Denies rhinorrhea, congestion, or otalgia. CARDIOVASCULAR: Denies chest pain, palpitations, or edema. RESPIRATORY: Denies cough or dyspnea. GASTROINTESTINAL: Denies abdominal pain, nausea, vomiting, or diarrhea. GENITOURINARY: Denies dysuria or hematuria. SKIN: Denies rash or itching. MUSCULOSKELETAL: Denies back pain, joint pain, or myalgia. NEUROLOGIC: Denies headache, numbness, dizziness, or weakness. PSYCHIATRIC: Denies anxiety or depression. [facility] Past Medical History Medical History PONV (postoperative nausea and vomiting) Depression Anxiety Surgical History Surgical History History of removal of ovarian cyst Family History Family History Father ALS (amyotrophic lateral sclerosis) Hypertension Heart disease Grandparent Malignant neoplasm of prostate Heart disease Hypertension Grandparent Leukemia Social History Social History Smoking status: Never smoker Alcohol intake: current Drinks per week: 4 Alcohol use details: WHEN NOT Substance use: never Substance use type: does not use Do You Feel Safe in your Home?: Yes Lack of Transportation: No Lack of Food: Never True Current Housing: I Have Housing Concerned About Future Housing: No Difficulty Paying Gas/Electric Bills: No Difficulty Paying for Meds: No Currently Unemployed: No Education: High School Diploma/GED Difficulty w/ Childcare or Family Care: No Living arrangements: with family Additional occupation/education comments: Employed [employer] Gender identity (if verbalized by the patient): Female Spiritual care concerns: No Agree to blood products: Yes Exam Narrative: GENERAL: Well-appearing, well-nourished, and in no acute distress. HEAD: Normocephalic, atraumatic. EYES: PERRLA and EOMI. ENT: Nares clear, no rhinorrhea or epistaxis. Mucous membranes moist. Bilateral tonsillar enlargement. Oropharynx without tonsillar hypertrophy exu date or other lesions. Bilateral TMs pearly wolf nonbulging NECK: Supple. No adenopathy or masses. No carotid bruits or JVD CHEST: Clear to auscultation. No respiratory distress. No wheezes rales or rhonchi HEART: Regular rate and rhythm. No murmur heard. Normal peripheral pulses. ABDOMEN: Soft, nontender, nondistended, normal active bowel sounds. EXTREMITIES: Normal range of motion. No edema. SKIN: Warm, dry, no rash. NEURO: No focal deficits. Alert and oriented x3. PSYCH: Normal mood and affect. Course Course Emergency Course: This is a 29-year-old female that presented for evaluation of a sore throat. Rapid strep was negative. Will send throat culture. Through shared decision making opted to proceed with antibiotic therapy. Will discharge wth Augmentin. Follow-up with primary provider. Go to the ER for worsening symptoms. Patient in agreement with plan of care. Level of Care: Express Care Visit Vital Signs Vital signs: Vital Signs Temperature 36.9 C 11/28/24 08:54 Pulse Rate 77 11/28/24 08:54 Respiratory Rate 16 11/28/24 08:54 Blood Pressure 118/60 11/28/24 08:54 Pulse Oximetry 99 11/28/24 08:54 Oxygen Delivery Room Air 11/28/24 08:54 Temperature 36.9 C 11/28/24 08:54 Pulse Rate 77 11/28/24 08:54 Respiratory Rate 16 11/28/24 08:54 Blood Pressure 118/60 11/28/24 08:54 Pulse Oximetry 99 11/28/24 08:54 Oxygen Delivery Room Air 11/28/24 08:54 Medical Decision Making Vital Signs Vital Signs: Vital Signs Temperature 36.9 C 11/28/24 08:54 Pulse Rate 77 11/28/24 08:54 Respiratory Rate 16 11/28/24 08:54 Blood Pressure 118/60 11/28/24 08:54 Pulse Oximetry 99 11/28/24 08:54 Oxygen Delivery Room Air 11/28/24 08:54 Temperature 36.9 C 11/28/24 08:54 Pulse Rate 77 11/28/24 08:54 Respiratory Rate 16 11/28/24 08:54 Blood Pressure 118/60 11/28/24 08:54 Pulse Oximetry 99 11/28/24 08:54 Oxygen Delivery Room Air 11/28/24 08:54 Lab Data Labs: Lab Results 11/28/24 Range/Units 09:00 POC Grp A Strep Screen Negative (Negative) Discharge Plan Discharge Clinical Impression: Pharyngitis Patient Disposition: Home Condition: Stable Instructions: Antibiotic Form, Pharyngitis (ED) Patient Language: Italian Prescriptions: New amoxicillin-pot clavulanate 875-125 mg tablet 1 tablet PO Q12H Qty: 20 0RF Follow-up/Referrals: Jocelyn Carrera APRN [Primary Care Provider] - Time of Disposition: 09:21
== END 2024-11-28 09:23 | disposition home or self-care (01) ==
PROVIDERS: Emergency Provider Nurse Practitioner; PCP Nurse Practitioner Adult Health
DX: J02.9 Acute pharyngitis, unspecified (principal)
CPT/HCPCS: 87081; 87880; 99213; G0463